=== PATIENT | male | born 1985 | race African-American/Black ===

== ENCOUNTER 2019-10-03 01:10 | Emergency (ER) | payer MEDICAID ==
[~2019-10-03] VITALS: Ht 182.9 cm; Wt 97.7 kg
[2019-10-03] MEDS ORDERED: morphine 4 MG/ML inj SYRINge IV ONE (01:30)
[2019-10-03] MEDS ORDERED: acetaminophen 325mg tablet PO ONE (01:30)
[2019-10-03] MEDS ORDERED: HYDROcodone/acetaminophen 5mg/325mg tablet PO ONE ×2 (01:30→02:30)
[2019-10-03] MEDS ORDERED: ondansetron/PF 4mg/2ml inj IV ONE (01:30)
[2019-10-03] MEDS ORDERED: normal saline 1000ml 1,000 ML IV ONE ×2 (01:35→02:25)
[2019-10-03 01:41] LABS: BASOPHILS % (AUTO) 0.5 % (0-1); EOSINOPHILS # (AUTO) 0.1 X10'3 (0-0.9); EOSINOPHILS % (AUTO) 0.7 % (0-6); HEMATOCRIT 40.4 % (42.0-52.0); HEMOGLOBIN 13.9 g/dl (14.0-17.9); LYMPHOCYTES # (AUTO) 1.6 X10'3 (1.1-4.8); LYMPHOCYTES % (AUTO) 15.9 % (21-51); MEAN CORPUSCULAR HEMOGLOBIN 31.7 PG (27.0-31.0); MEAN CORPUSCULAR HGB CONC 34.4 g/dL (33.0-36.5); MEAN CORPUSCULAR VOLUME 91.9 FL (78-98); MEAN PLATELET VOLUME 7.9 FL (7.4-10.4); MONOCYTES # (AUTO) 0.7 X10'3 (0-0.9); NEUTROPHILS # (AUTO) 7.7 X10'3 (1.8-7.7); NEUTROPHILS % (AUTO) 75.9 % (42-75); PLATELET COUNT 294 X10'3 (140-440); RED CELL DISTRIBUTION WIDTH 12.3 % (11.5-14.5); WHITE BLOOD COUNT 10.2 X10'3 (4.5-11.0)
[2019-10-03 02:08] LABS: CLARITY,URINE SLIGHTLY CLOUDY (Clear); COLOR,URINE YELLOW (Yellow); GLUCOSE, URINE 500 mg/dl (Neg); KETONES,URINE >=80 mg/dl (Neg); LEUKOCYTE ESTERASE ,URINE NEGATIVE (Neg); NITRITES, URINE NEGATIVE (Neg); OCCULT BLOOD,URINE TRACE-INTACT (Neg); PROTEIN,URINE 100 mg/dl (Neg); UROBILINOGEN,URINE 0.2 E.U/dL (0.2-1.0)
[2019-10-03 02:12] LABS: UA COLLECTION TYPE URINAL
[2019-10-03 02:13] LABS: BACTERIA,URINE NONE SEEN /HPF (Neg); RBC,URINE 0-2 /HPF (0-2); SQUAMOUS EPITHELIAL CELL,UR FEW /LPF (FEW); WBC,URINE NONE SEEN /HPF (0-4)
[2019-10-03 02:21] LABS: ALANINE AMINOTRANSFERASE 58 U/L (12-78); ALBUMIN/GLOBULIN RATIO 0.8 (1.1-1.5); ALKALINE PHOSPHATASE 117 IU/L (46-116); ANION GAP 13 (8-16); ASPARTATE AMINO TRANSFERASE 52 U/L (10-37); BILIRUBIN,TOTAL 1.2 MG/DL (0.1-1.0); BLOOD UREA NITROGEN 9 MG/DL (7-18); BUN/CREATININE RATIO 7.4 (5.4-32.0); CALCIUM 9.8 MG/DL (8.5-10.1); CHLORIDE 103 MMOL/L (99-107); CREATININE 1.21 MG/DL (0.60-1.10); GLUCOSE 294 MG/DL (70-104); LIPASE 476 U/L (73-393); POTASSIUM 3.4 MMOL/L (3.5-5.1); SODIUM 140 MMOL/L (135-145); TOTAL CARBON DIOXIDE 24.5 MMOL/L (24-32); TOTAL PROTEIN 8.8 G/DL (6.4-8.2); eGFR 69 ML/MIN
[2019-10-03] MEDS ORDERED: ONDA8TAB6 PO (02:28)
[2019-10-03] MEDS ORDERED: HYDR-3965 PO (02:28)
[2019-10-03] MEDS ORDERED: pantoprazole 40 MG vial IV ONE (02:30)
[2019-10-03] MEDS ORDERED: PANT-47 PO (02:30)
[2019-10-03 02:38] VITALS: BP 146/107
== END 2019-10-03 02:50 | disposition home or self-care (01) ==
LOC: ER 01:11
DX: K85.20 Alcohol induced acute pancreatitis without necrosis or infection (principal); R10.10 Upper abdominal pain, unspecified; R11.0 Nausea; Z72.89 Other problems related to lifestyle; Z88.0 Allergy status to penicillin; Z79.899 Other long term (current) drug therapy
CPT/HCPCS: 36415; 80053; 81001; 82948; 83690; 85025; 96374; 96375; 99284; C9113; J2270; J2405; J7030

== ENCOUNTER 2019-11-04 21:45 | Inpatient (IN) | payer MEDICAID, OTHER ==
[~2019-11-04] VITALS: Ht 182.9 cm; Wt 95.5 kg
[~2019-11-04 21:45] MED LIST: HYDR-3965 PO; ONDA8TAB6 PO; PANT-47 PO
[2019-11-04] MEDS ORDERED: normal saline 1000ML IV soln IVB ONE ×2 (22:20→22:40)
[2019-11-04] MEDS ORDERED: ondansetron/PF 4mg/2ml inj IV ONE (22:20)
[2019-11-04 22:30] LABS: ALANINE AMINOTRANSFERASE 76 U/L (12-78); ALBUMIN 4.5 G/DL (3.4-5.0); ALBUMIN/GLOBULIN RATIO 0.8 (1.1-1.5); ALKALINE PHOSPHATASE 149 IU/L (46-116); ANION GAP 28 (8-16); ASPARTATE AMINO TRANSFERASE 46 U/L (10-37); BILIRUBIN,TOTAL 1.3 MG/DL (0.1-1.0); BLOOD UREA NITROGEN 8 MG/DL (7-18); BUN/CREATININE RATIO 5.7 (5.4-32.0); CALCIUM 9.9 MG/DL (8.5-10.1); CHLORIDE 96 MMOL/L (99-107); CREATININE 1.41 MG/DL (0.60-1.10); GLUCOSE 420 MG/DL (70-104); POTASSIUM 4.3 MMOL/L (3.5-5.1); SODIUM 133 MMOL/L (135-145); TOTAL PROTEIN 9.8 G/DL (6.4-8.2); eGFR 70 ML/MIN
[2019-11-04 22:33] LABS: BASOPHILS % (AUTO) 0.4 % (0-1); EOSINOPHILS % (AUTO) 0.3 % (0-6); HEMATOCRIT 48.6 % (42.0-52.0); LYMPHOCYTES # (AUTO) 2.4 X10'3 (1.1-4.8); LYMPHOCYTES % (AUTO) 18.2 % (21-51); MEAN CORPUSCULAR HEMOGLOBIN 30.7 PG (27.0-31.0); MEAN CORPUSCULAR HGB CONC 32.9 g/dL (33.0-36.5); MEAN CORPUSCULAR VOLUME 93.4 FL (78-98); MEAN PLATELET VOLUME 9.2 FL (7.4-10.4); MONOCYTES % (AUTO) 7.9 % (2-12); NEUTROPHILS # (AUTO) 9.7 X10'3 (1.8-7.7); NEUTROPHILS % (AUTO) 73.2 % (42-75); PLATELET COUNT 285 X10'3 (140-440); RED CELL DISTRIBUTION WIDTH 12.1 % (11.5-14.5); WHITE BLOOD COUNT 13.2 X10'3 (4.5-11.0)
[2019-11-04 22:35] LABS: CLARITY,URINE CLEAR (Clear); COLOR,URINE YELLOW (Yellow); GLUCOSE, URINE >=1000 mg/dl (Neg); KETONES,URINE >=80 mg/dl (Neg); LEUKOCYTE ESTERASE ,URINE NEGATIVE (Neg); NITRITES, URINE NEGATIVE (Neg); OCCULT BLOOD,URINE MODERATE (Neg); PH,URINE 5.5 (4.8-8.0); PROTEIN,URINE 30 mg/dl (Neg); UROBILINOGEN,URINE 0.2 E.U/dL (0.2-1.0)
[2019-11-04 22:35] LABS: LIPASE 1984 U/L (73-393); TOTAL CARBON DIOXIDE 9.3 MMOL/L (24-32)
[2019-11-04 22:40] LABS: UA COLLECTION TYPE CLN CATCH MIDSTREAM
[2019-11-04] MEDS ORDERED: insulin regular, human U-100 3ml vial - multi-dose IV PRN ×2 (22:40→23:20)
[2019-11-04 22:43] LABS: BACTERIA,URINE NONE SEEN /HPF (Neg); RBC,URINE 0-2 /HPF (0-2); SQUAMOUS EPITHELIAL CELL,UR FEW /LPF (FEW); WBC,URINE NONE SEEN /HPF (0-4)
[2019-11-04 23:06] LABS: ABG BASE EXCESS -17.4 mmol/L (-2.0-2.0); ABG HCO3 7.3 mmol/L (22.0-26.0); ABG OXYGEN SATURATION 97.5 % (94-97); ABG PCO2 (T) 17.5 mmHg (35.0-48.0); ABG PO2 (T) 106.5 mmHg (75.0-100.0); ALLEN'S TEST POSITIVE; FCOHb 0.3 % (0.0-3.9); FMetHb 0.5 % (0.0-1.5); FO2Hb 96.7 % (94-97); PATIENT TEMPERATURE 36.8; TOTAL HEMOGLOBIN 16.9 G/dl (14.0-18.0)
[2019-11-04] MEDS ORDERED: sodium phosphate inj. 30 MMOL in dextrose 5%-water 250 ML IV PRN (23:20)
[2019-11-04] MEDS ORDERED: thiamine inj. 100 MG in normal saline 100ml IV soln 100 ML IV ONE (23:20)
[2019-11-04] MEDS ORDERED: potassium CL 10mEq/100ml bag 100 ML IV PRN ×2 (23:20)
[2019-11-04] MEDS ORDERED: sodium bicarbonate (8.4%) inj. 50 MEQ in dextrose 5% water 500ml 250 ML IV PRN (23:20)
[2019-11-04] MEDS ORDERED: haloperidol lactate 5mg/ml inj IM PRN (23:20)
[2019-11-04] MEDS ORDERED: magnesium 2GM in 50ml NS 50 ML IV PRN (23:20)
[2019-11-04] MEDS ORDERED: haloperidol 5mg tablet PO PRN (23:20)
[2019-11-04] MEDS ORDERED: magnesium Cl slow-release 64mg tablet PO PRN (23:20)
[2019-11-04] MEDS ORDERED: acetaminophen 325mg tablet PO PRN (23:20)
[2019-11-04] MEDS ORDERED: LORazepam 2 mg/ml vial IV PRN (23:20)
[2019-11-04] MEDS ORDERED: sodium phosphate inj. 15 MMOL in dextrose 5%-water 250 ML IV PRN (23:20)
[2019-11-04] MEDS ORDERED: morphine 2 MG/ML inj. syringe IV PRN (23:20)
[2019-11-04] MEDS ORDERED: Neutra Phos packet PO PRN (23:20)
[2019-11-04] MEDS ORDERED: potassium Cl 20 mEq SR tablet PO PRN (23:20)
[2019-11-04] MEDS: normal saline 1000ml 1,000 ML IV SCH ×2 (23:20→23:50)
[2019-11-04] MEDS ORDERED: Insulin Reg/NS 100units/100mL 100 ML IV SCH (23:20)
[2019-11-04] MEDS ORDERED: magnesium 4gm in 100ml NS 100 ML IV PRN (23:20)
[2019-11-04] MEDS ORDERED: sodium bicarbonate (8.4%) inj. 100 MEQ in dextrose 5% water 500ml 500 ML IV PRN (23:20)
[2019-11-04] MEDS: morphine 4 MG/ML inj SYRINge IV PRN (23:24)
[2019-11-04] MEDS: Insulin Reg/NS 100units/100mL 100 ML IV SCH (23:34)
--- NOTE | 2019-11-04 23:40 | NUR ---
bs 340 before insulin drip started
[2019-11-04] MEDS ORDERED: METF500T PO (23:46)
[2019-11-04] MEDS ORDERED: MULT-1085 PO (23:46)
[2019-11-04] MEDS ORDERED: LOSA25TA96 PO (23:46)
[2019-11-05] MEDS ORDERED: proCHLORperazine 10 MG/2 ml inj IV ONE (00:25)
[2019-11-05] MEDS: morphine 4 MG/ML inj SYRINge IV PRN ×6 (00:26→21:08)
[2019-11-05] MEDS: normal saline 1000ml 1,000 ML IV SCH ×3 (01:04→07:20)
[2019-11-05 01:24] LABS: BASOPHILS % (AUTO) 0.4 % (0-1); EOSINOPHILS % (AUTO) 0.2 % (0-6); HEMATOCRIT 42.7 % (42.0-52.0); HEMOGLOBIN 14.1 g/dl (14.0-17.9); LYMPHOCYTES # (AUTO) 1.6 X10'3 (1.1-4.8); LYMPHOCYTES % (AUTO) 17.2 % (21-51); MEAN CORPUSCULAR VOLUME 93.7 FL (78-98); MONOCYTES # (AUTO) 0.8 X10'3 (0-0.9); MONOCYTES % (AUTO) 8.8 % (2-12); NEUTROPHILS # (AUTO) 6.8 X10'3 (1.8-7.7); NEUTROPHILS % (AUTO) 73.4 % (42-75); PLATELET COUNT 225 X10'3 (140-440); RED BLOOD COUNT 4.56 X10'6 (4.70-6.10); RED CELL DISTRIBUTION WIDTH 11.9 % (11.5-14.5); WHITE BLOOD COUNT 9.3 X10'3 (4.5-11.0)
[2019-11-05 01:32] LABS: ALBUMIN 3.6 G/DL (3.4-5.0); ANION GAP 24 (8-16); BLOOD UREA NITROGEN 7 MG/DL (7-18); BUN/CREATININE RATIO 5.4 (5.4-32.0); CALCIUM 8.3 MG/DL (8.5-10.1); CHLORIDE 106 MMOL/L (99-107); CREATININE 1.29 MG/DL (0.60-1.10); GLUCOSE 290 MG/DL (70-104); PHOSPHORUS 3.2 MG/DL (2.3-4.5); POTASSIUM 3.9 MMOL/L (3.5-5.1); SODIUM 140 MMOL/L (135-145); eGFR 77 ML/MIN
[2019-11-05 01:33] LABS: TOTAL CARBON DIOXIDE 9.6 MMOL/L (24-32)
[2019-11-05] MEDS: potassium CL 20mEq in D5-1/2NS 1,000 ML IV PRN ×3 (02:33→21:12)
[2019-11-05] MEDS: ondansetron/PF 4mg/2ml inj IV PRN (02:50)
[2019-11-05 03:00] VITALS: BP 142/92
[2019-11-05 04:17] LABS: HEMOGLOBIN A1C 11.7 % (4.5-6.2)
--- NOTE | 2019-11-05 06:15 | NUR ---
Patient in room U 3023. I have received report from Sanjeev NASH and had the opportunity to ask questions and assume patient care. Patient awake and in bed, appears to be in mild discomfort.
--- NOTE | 2019-11-05 06:20 | NUR ---
Patient in room PCU 3023. I have received report from CHARITY Pace and had the opportunity to ask questions and assume patient care.
[2019-11-05 06:28] LABS: ALANINE AMINOTRANSFERASE 53 U/L (12-78); ALBUMIN 3.6 G/DL (3.4-5.0); ALBUMIN/GLOBULIN RATIO 0.9 (1.1-1.5); ALKALINE PHOSPHATASE 117 IU/L (46-116); ANION GAP 19 (8-16); ASPARTATE AMINO TRANSFERASE 28 U/L (10-37); BILIRUBIN,TOTAL 0.9 MG/DL (0.1-1.0); BLOOD UREA NITROGEN 5 MG/DL (7-18); BUN/CREATININE RATIO 4.4 (5.4-32.0); CALCIUM 8.2 MG/DL (8.5-10.1); CHLORIDE 108 MMOL/L (99-107); CREATININE 1.14 MG/DL (0.60-1.10); GLUCOSE 230 MG/DL (70-104); PHOSPHORUS 2.3 MG/DL (2.3-4.5); POTASSIUM 3.6 MMOL/L (3.5-5.1); SODIUM 139 MMOL/L (135-145); TOTAL PROTEIN 7.7 G/DL (6.4-8.2); eGFR 89 ML/MIN
[2019-11-05 06:34] LABS: TOTAL CARBON DIOXIDE 11.9 MMOL/L (24-32)
--- NOTE | 2019-11-05 06:54 | NUR ---
Paged Dr Liao PAGER ID: [phone] MESSAGE: Graham Caro Rm 3023B Pt DKA CO2 is 11.9, up from 9.6. Thanks Lea Macias [phone]
[2019-11-05 07:00] VITALS: BP 117/84
[2019-11-05] MEDS: K and/or MAG REPLACEMENT MC SCH ×2 (08:00→19:26)
[2019-11-05] MEDS ORDERED: folic acid inj. 2 MG, thiamine inj. 100 MG, MVI, adult No.4 with vit. K 10 ML in dextro... IV SCH ×4 (08:00)
[2019-11-05] MEDS: losartan 25mg tablet PO SCH (08:13)
[2019-11-05] MEDS: folic acid 1mg tablet PO SCH (08:13)
[2019-11-05] MEDS: thiamine 100mg tablet PO SCH (08:13)
[2019-11-05] MEDS: multivitamins, therapeutics tablet PO SCH (08:13)
[2019-11-05] MEDS: enoxaparin 40mg/0.4ml syringe SQ SCH (08:15)
[2019-11-05] MEDS ORDERED: pneumococcal 23-VAL P-sac vacc 25 mcg/0.5ml vial IMVAC ONE (10:00)
[2019-11-05 11:00] VITALS: BP 126/69
[2019-11-05 11:39] LABS: ALANINE AMINOTRANSFERASE 49 U/L (12-78); ALBUMIN 3.6 G/DL (3.4-5.0); ALBUMIN/GLOBULIN RATIO 0.9 (1.1-1.5); ALKALINE PHOSPHATASE 114 IU/L (46-116); ANION GAP 17 (8-16); ASPARTATE AMINO TRANSFERASE 27 U/L (10-37); BILIRUBIN,TOTAL 1.1 MG/DL (0.1-1.0); BLOOD UREA NITROGEN 4 MG/DL (7-18); BUN/CREATININE RATIO 3.7 (5.4-32.0); CHLORIDE 109 MMOL/L (99-107); CREATININE 1.08 MG/DL (0.60-1.10); GLUCOSE 146 MG/DL (70-104); POTASSIUM 3.7 MMOL/L (3.5-5.1); SODIUM 141 MMOL/L (135-145); TOTAL PROTEIN 7.8 G/DL (6.4-8.2); eGFR > 90 ML/MIN
[2019-11-05 11:40] LABS: TOTAL CARBON DIOXIDE 14.8 MMOL/L (24-32)
--- NOTE | 2019-11-05 11:54 | NUR ---
Paged Dr Hernandez regarding critical CO2 PAGER ID: [phone] MESSAGE: Re: Graham Deal Rm 3023B CO2 14.8, up from 11.9. Thank you Lea Macias [phone]
[2019-11-05] MEDS: Insulin Reg/NS 100units/100mL 100 ML IV SCH (13:21)
--- NOTE | 2019-11-05 14:41 | NUR ---
DM consult, patient's A1c is 11.7; presented to ED with BG 490 mg/dl and accuchecks 154-346 mg/dl, abdominal pain, n/v; admitted with DKA, acute pancreatitis, NIKKIE. History pancreatitis, EtOH, DM (diagnosed 6 months ago). Per H&P recent admission to [facility] with EtOH induced pancreatitis, takes metformin with recent increase in dose,last drink two days PHYSICIAN NEONATOLOGY, and pt reporting no change in appetite. Receiving thiamine, folic acid, banana bag, MVI. Will need written DM education handout and written pancreatitis education handout with verbal review prior to discharge. Recommend: 1. Diet advancement as medically indicated to low fat 2. Continue banana bag, thiamine, folic acid, MVI 3. weight per rx Addendum: 11/05/19 at [address] Amended: Links added.
[2019-11-05 15:00] VITALS: BP 116/75
[2019-11-05 15:31] LABS: ALANINE AMINOTRANSFERASE 49 U/L (12-78); ALBUMIN 3.4 G/DL (3.4-5.0); ALBUMIN/GLOBULIN RATIO 0.8 (1.1-1.5); ALKALINE PHOSPHATASE 107 IU/L (46-116); ANION GAP 13 (8-16); ASPARTATE AMINO TRANSFERASE 27 U/L (10-37); BILIRUBIN,TOTAL 1.2 MG/DL (0.1-1.0); BLOOD UREA NITROGEN 4 MG/DL (7-18); BUN/CREATININE RATIO 3.9 (5.4-32.0); CALCIUM 8.9 MG/DL (8.5-10.1); CHLORIDE 109 MMOL/L (99-107); CREATININE 1.02 MG/DL (0.60-1.10); GLUCOSE 165 MG/DL (70-104); POTASSIUM 3.6 MMOL/L (3.5-5.1); SODIUM 140 MMOL/L (135-145); TOTAL CARBON DIOXIDE 17.8 MMOL/L (24-32); TOTAL PROTEIN 7.8 G/DL (6.4-8.2); eGFR > 90 ML/MIN
--- NOTE | 2019-11-05 16:17 | NUR ---
Paged Dr Hernandez regarding patient's blood sugar being 146. MESSAGE: Re Graham Deal [id number] Pt's blood sugar is 146, maxed out on fluids at 250ml/hr, Insulin is running at 5ml/hr, can I lower the inslulin rate? Thank you Lea Macias [phone]
--- NOTE | 2019-11-05 16:24 | NUR ---
Per Dr Hernandez's order, because pt's blood sugar was 146, I was advised to lower Insulin to 3ml/hr from 5ml/hr.
--- NOTE | 2019-11-05 17:35 | NUR ---
Patient's KCL 20meq D5 1/2 NS went to KVO mode for 20 mins while I was waiting for pharmacy to make a new bag. Pt's blood sugar dropped to 129, I waited 15 minutes with the KCL 20meq D5 1/2 NS to run and rechecked the blood sugar, it came up to 155. I kept all orders the same as of now and will page the doctor if new changes are noted.
--- NOTE | 2019-11-05 18:12 | NUR ---
Orientee documentation: I have reviewed and agree with all interventions, assessments performed and documented by CHARITY Phan.
--- NOTE | 2019-11-05 18:12 | NUR ---
Problems reprioritized. Patient report given, questions answered & plan of care reviewed with Sanjeev NASH. Patient awake and watching televison comftorably in bed.
--- NOTE | 2019-11-05 18:13 | NUR ---
Orientee Medication Administration: For this medication-pass time frame, all medication were reviewed, dispensed, administered and documented per hospital policy by CHARITY Phan.
--- NOTE | 2019-11-05 18:13 | NUR ---
Problems reprioritized. Patient report given, questions answered & plan of care reviewed with CHARITY Pace. All patient needs met at this time.
[2019-11-05 18:58] VITALS: BP 118/73
[2019-11-05 19:55] LABS: ALANINE AMINOTRANSFERASE 49 U/L (12-78); ALBUMIN 3.4 G/DL (3.4-5.0); ALBUMIN/GLOBULIN RATIO 0.8 (1.1-1.5); ALKALINE PHOSPHATASE 106 IU/L (46-116); ANION GAP 13 (8-16); ASPARTATE AMINO TRANSFERASE 28 U/L (10-37); BILIRUBIN,TOTAL 1.3 MG/DL (0.1-1.0); BLOOD UREA NITROGEN 3 MG/DL (7-18); BUN/CREATININE RATIO 2.9 (5.4-32.0); CALCIUM 8.7 MG/DL (8.5-10.1); CHLORIDE 107 MMOL/L (99-107); CREATININE 1.04 MG/DL (0.60-1.10); GLUCOSE 207 MG/DL (70-104); POTASSIUM 3.6 MMOL/L (3.5-5.1); SODIUM 138 MMOL/L (135-145); TOTAL CARBON DIOXIDE 17.6 MMOL/L (24-32); TOTAL PROTEIN 7.5 G/DL (6.4-8.2); eGFR > 90 ML/MIN
[2019-11-05 22:55] LABS: ALANINE AMINOTRANSFERASE 44 U/L (12-78); ALBUMIN 3.3 G/DL (3.4-5.0); ALBUMIN/GLOBULIN RATIO 0.8 (1.1-1.5); ALKALINE PHOSPHATASE 106 IU/L (46-116); ANION GAP 12 (8-16); ASPARTATE AMINO TRANSFERASE 25 U/L (10-37); BILIRUBIN,TOTAL 1.4 MG/DL (0.1-1.0); BLOOD UREA NITROGEN 3 MG/DL (7-18); BUN/CREATININE RATIO 3.1 (5.4-32.0); CALCIUM 8.5 MG/DL (8.5-10.1); CHLORIDE 108 MMOL/L (99-107); CREATININE 0.97 MG/DL (0.60-1.10); GLUCOSE 221 MG/DL (70-104); POTASSIUM 3.4 MMOL/L (3.5-5.1); SODIUM 138 MMOL/L (135-145); TOTAL CARBON DIOXIDE 18.4 MMOL/L (24-32); TOTAL PROTEIN 7.2 G/DL (6.4-8.2); eGFR > 90 ML/MIN
[2019-11-05 23:00] VITALS: BP 107/71
[2019-11-05] MEDS: potassium Cl 20 mEq SR tablet PO PRN (23:26)
[2019-11-06] MEDS: morphine 4 MG/ML inj SYRINge IV PRN ×6 (01:24→23:09)
[2019-11-06 02:40] LABS: BASOPHILS % (AUTO) 0.6 % (0-1); EOSINOPHILS # (AUTO) 0.2 X10'3 (0-0.9); EOSINOPHILS % (AUTO) 2.7 % (0-6); HEMATOCRIT 38.7 % (42.0-52.0); HEMOGLOBIN 12.9 g/dl (14.0-17.9); LYMPHOCYTES # (AUTO) 1.6 X10'3 (1.1-4.8); LYMPHOCYTES % (AUTO) 24.6 % (21-51); MEAN CORPUSCULAR HEMOGLOBIN 30.1 PG (27.0-31.0); MEAN CORPUSCULAR HGB CONC 33.3 g/dL (33.0-36.5); MEAN CORPUSCULAR VOLUME 90.2 FL (78-98); MEAN PLATELET VOLUME 8.5 FL (7.4-10.4); MONOCYTES # (AUTO) 0.7 X10'3 (0-0.9); MONOCYTES % (AUTO) 11.3 % (2-12); NEUTROPHILS # (AUTO) 3.9 X10'3 (1.8-7.7); NEUTROPHILS % (AUTO) 60.8 % (42-75); PLATELET COUNT 209 X10'3 (140-440); RED BLOOD COUNT 4.29 X10'6 (4.70-6.10); RED CELL DISTRIBUTION WIDTH 12.1 % (11.5-14.5); WHITE BLOOD COUNT 6.5 X10'3 (4.5-11.0)
[2019-11-06 02:55] LABS: ALANINE AMINOTRANSFERASE 46 U/L (12-78); ALBUMIN 3.2 G/DL (3.4-5.0); ALBUMIN/GLOBULIN RATIO 0.8 (1.1-1.5); ALKALINE PHOSPHATASE 103 IU/L (46-116); ANION GAP 12 (8-16); ASPARTATE AMINO TRANSFERASE 35 U/L (10-37); BILIRUBIN,TOTAL 1.5 MG/DL (0.1-1.0); BLOOD UREA NITROGEN 2 MG/DL (7-18); BUN/CREATININE RATIO 2.2 (5.4-32.0); CALCIUM 8.7 MG/DL (8.5-10.1); CHLORIDE 107 MMOL/L (99-107); CREATININE 0.89 MG/DL (0.60-1.10); GLUCOSE 197 MG/DL (70-104); MAGNESIUM 1.8 MG/DL (1.5-2.4); PHOSPHORUS 1.9 MG/DL (2.3-4.5); POTASSIUM 3.3 MMOL/L (3.5-5.1); SODIUM 138 MMOL/L (135-145); TOTAL CARBON DIOXIDE 18.7 MMOL/L (24-32); TOTAL PROTEIN 7.1 G/DL (6.4-8.2); eGFR > 90 ML/MIN
[2019-11-06 03:00] VITALS: BP 115/69
[2019-11-06] MEDS: potassium Cl 20 mEq SR tablet PO PRN ×4 (03:33→23:18)
--- NOTE | 2019-11-06 06:11 | NUR ---
Patient in room PCU 3023. I have received report from Sanjeev NASH and had the opportunity to ask questions and assume patient care. Pt. awake and watching television in bed comfortably.
--- NOTE | 2019-11-06 06:13 | NUR ---
Patient in room PCU 3023. I have received report from CHARITY Pace and had the opportunity to ask questions and assume patient care. Pt resting comfortably, no needs at this time
[2019-11-06 07:00] VITALS: BP 121/83
[2019-11-06] MEDS: enoxaparin 40mg/0.4ml syringe SQ SCH (07:19)
[2019-11-06] MEDS: thiamine 100mg tablet PO SCH (07:19)
[2019-11-06] MEDS: multivitamins, therapeutics tablet PO SCH (07:20)
[2019-11-06] MEDS: losartan 25mg tablet PO SCH (07:20)
[2019-11-06] MEDS: folic acid 1mg tablet PO SCH (07:20)
[2019-11-06] MEDS: potassium CL 20mEq in D5-1/2NS 1,000 ML IV PRN (07:26)
[2019-11-06 07:52] LABS: ALANINE AMINOTRANSFERASE 50 U/L (12-78); ALBUMIN 3.3 G/DL (3.4-5.0); ALBUMIN/GLOBULIN RATIO 0.8 (1.1-1.5); ALKALINE PHOSPHATASE 105 IU/L (46-116); ANION GAP 11 (8-16); ASPARTATE AMINO TRANSFERASE 38 U/L (10-37); BILIRUBIN,TOTAL 1.6 MG/DL (0.1-1.0); BLOOD UREA NITROGEN 2 MG/DL (7-18); BUN/CREATININE RATIO 2.4 (5.4-32.0); CALCIUM 8.6 MG/DL (8.5-10.1); CHLORIDE 106 MMOL/L (99-107); CREATININE 0.85 MG/DL (0.60-1.10); GLUCOSE 169 MG/DL (70-104); POTASSIUM 3.6 MMOL/L (3.5-5.1); SODIUM 137 MMOL/L (135-145); TOTAL CARBON DIOXIDE 20.4 MMOL/L (24-32); TOTAL PROTEIN 7.3 G/DL (6.4-8.2); eGFR > 90 ML/MIN
[2019-11-06] MEDS: K and/or MAG REPLACEMENT MC SCH ×2 (08:00→19:23)
[2019-11-06] MEDS ORDERED: dextrose 50%-water 50ml dispensing syringe IV PRN ×2 (09:10)
[2019-11-06] MEDS ORDERED: glucagon, human recombinant 1mg kit SUBCUT PRN (09:10)
[2019-11-06] MEDS ORDERED: dextrose ORAL solution 15 GM/59 ML bottle PO PRN ×2 (09:10)
[2019-11-06] MEDS ORDERED: MESSAGE TO PHARMACY PO ONE (09:10)
--- NOTE | 2019-11-06 09:27 | NUR ---
Per Dr Hernandez's orders, give patient 15 units of Lantus, wait one hour then shut the insulin gtt and 20meq D5 1/2 NS off. Start pt on the hyperglycemia/hypoglycemia protocol, order a carb control diet, start giving NS @100ml/hr, and do Q2H accuchecks. Get orthostatic vitals Q12H, and order physical therapy.
[2019-11-06 11:00] VITALS: BP 121/85
[2019-11-06 11:13] LABS: ALANINE AMINOTRANSFERASE 57 U/L (12-78); ALBUMIN 3.4 G/DL (3.4-5.0); ALBUMIN/GLOBULIN RATIO 0.8 (1.1-1.5); ALKALINE PHOSPHATASE 108 IU/L (46-116); ANION GAP 9 (8-16); ASPARTATE AMINO TRANSFERASE 55 U/L (10-37); BILIRUBIN,TOTAL 1.7 MG/DL (0.1-1.0); BLOOD UREA NITROGEN 2 MG/DL (7-18); BUN/CREATININE RATIO 2.3 (5.4-32.0); CALCIUM 8.9 MG/DL (8.5-10.1); CHLORIDE 104 MMOL/L (99-107); CREATININE 0.88 MG/DL (0.60-1.10); GLUCOSE 169 MG/DL (70-104); POTASSIUM 3.6 MMOL/L (3.5-5.1); SODIUM 136 MMOL/L (135-145); TOTAL CARBON DIOXIDE 22.7 MMOL/L (24-32); TOTAL PROTEIN 7.6 G/DL (6.4-8.2); eGFR > 90 ML/MIN
[2019-11-06] MEDS: normal saline 1000ml 1,000 ML IV SCH ×2 (11:35→20:17)
[2019-11-06] MEDS: insulin Lispro (HumaLOG) vial - multi-dose SQ SCH ×2 (13:43→21:37)
[2019-11-06] MEDS: ondansetron/PF 4mg/2ml inj IV PRN (13:57)
[2019-11-06 15:00] VITALS: BP 117/83
[2019-11-06 15:45] LABS: ALANINE AMINOTRANSFERASE 61 U/L (12-78); ALBUMIN 3.3 G/DL (3.4-5.0); ALBUMIN/GLOBULIN RATIO 0.9 (1.1-1.5); ALKALINE PHOSPHATASE 105 IU/L (46-116); ANION GAP 14 (8-16); ASPARTATE AMINO TRANSFERASE 63 U/L (10-37); BILIRUBIN,TOTAL 1.8 MG/DL (0.1-1.0); BLOOD UREA NITROGEN 3 MG/DL (7-18); BUN/CREATININE RATIO 3.9 (5.4-32.0); CALCIUM 8.8 MG/DL (8.5-10.1); CHLORIDE 105 MMOL/L (99-107); CREATININE 0.77 MG/DL (0.60-1.10); GLUCOSE 210 MG/DL (70-104); POTASSIUM 3.4 MMOL/L (3.5-5.1); SODIUM 137 MMOL/L (135-145); TOTAL CARBON DIOXIDE 18.4 MMOL/L (24-32); TOTAL PROTEIN 7.1 G/DL (6.4-8.2); eGFR > 90 ML/MIN
--- NOTE | 2019-11-06 16:56 | NUR ---
F/u for DM consult: Per MD note pt likely with T1DM and to be started on insulin. Pt seen at bedside for written and verbal pancreatitis and DM educations. Discussed CHO counting, low fat diet, and recommendation to discontinue alcohol intake d/t pancreatitis. Pt provided with insulin resources and informed about possible outpatient diabetes class through [facility] in [place]. Pt states he was previously taking his Metformin per rx however he was not following a CHO controlled diet although states he is familiar with diabetes management because his mom has diabetes. Pt passive during education. RD contact information provided. Patient's diet has been advanced to CHO controlled and pt documented to only have consumed 25% of starch on first meal. Pt denies food preferences, food allergies, or difficulty chewing/swallowing. Will continue to follow closely. Addendum: 11/06/19 at [address] Amended: Links added.
[2019-11-06 18:00] VITALS: BP 141/97
--- NOTE | 2019-11-06 18:14 | NUR ---
Per Dr Hernandez's orders, cancel Q4H CMP, continue with am labs. Start accuchecks Q4H, and cover pt with insulin per accucheck results and protocol, if pt has 2 consecutive blood sugars >200, contact provider for further instruction.
--- NOTE | 2019-11-06 18:16 | NUR ---
Orientee documentation: I have reviewed and agree with all interventions, assessments performed and documented by CHARITY Phan.
--- NOTE | 2019-11-06 18:16 | NUR ---
Orientee Medication Administration: For this medication-pass time frame, all medication were reviewed, dispensed, administered and documented per hospital policy by CHARITY Phan.
--- NOTE | 2019-11-06 18:17 | NUR ---
Problems reprioritized. Patient report given, questions answered & plan of care reviewed with Gonzalo RN. Patient eating dinner comftorably in bed, with no signs of distress.
--- NOTE | 2019-11-06 18:17 | NUR ---
Problems reprioritized. Patient report given, questions answered & plan of care reviewed with Gonzalo RN. All patient needs met at this time.
--- NOTE | 2019-11-06 18:30 | NUR ---
Patient in room PCU 3023. I have received report from Lea NASH and had the opportunity to ask questions and assume patient care. Per Lea NASH, MD QUICK wants BS taken Q4 and corrected per protocol sliding scale on Q4 basis.
[2019-11-06] MEDS ORDERED: famotidine 10mg tablet PO ONE (20:50)
[2019-11-06] MEDS ORDERED: insulin glargine (Lantus) pen - multi-dose SQ SCH (21:00)
[2019-11-06 22:00] VITALS: BP 146/102
[2019-11-06] MEDS ORDERED: LORazepam 1 MG tablet PO PRN (23:20)
[2019-11-06] MEDS ORDERED: LORazepam 2 mg/ml vial IV PRN (23:20)
[2019-11-07] MEDS: insulin Lispro (HumaLOG) vial - multi-dose SQ SCH ×4 (01:39→13:15)
[2019-11-07 02:00] VITALS: BP 146/100
[2019-11-07] MEDS: morphine 4 MG/ML inj SYRINge IV PRN ×3 (03:16→11:54)
[2019-11-07 05:22] LABS: BASOPHILS # (AUTO) 0.1 X10'3 (0-0.2); BASOPHILS % (AUTO) 0.9 % (0-1); EOSINOPHILS # (AUTO) 0.1 X10'3 (0-0.9); EOSINOPHILS % (AUTO) 2.2 % (0-6); HEMATOCRIT 38.7 % (42.0-52.0); HEMOGLOBIN 12.9 g/dl (14.0-17.9); LYMPHOCYTES # (AUTO) 1.5 X10'3 (1.1-4.8); LYMPHOCYTES % (AUTO) 27.5 % (21-51); MEAN CORPUSCULAR HEMOGLOBIN 30.3 PG (27.0-31.0); MEAN CORPUSCULAR HGB CONC 33.3 g/dL (33.0-36.5); MEAN CORPUSCULAR VOLUME 90.8 FL (78-98); MEAN PLATELET VOLUME 8.9 FL (7.4-10.4); MONOCYTES # (AUTO) 0.6 X10'3 (0-0.9); MONOCYTES % (AUTO) 10.5 % (2-12); NEUTROPHILS # (AUTO) 3.3 X10'3 (1.8-7.7); NEUTROPHILS % (AUTO) 58.9 % (42-75); PLATELET COUNT 220 X10'3 (140-440); RED BLOOD COUNT 4.26 X10'6 (4.70-6.10); RED CELL DISTRIBUTION WIDTH 11.9 % (11.5-14.5); WHITE BLOOD COUNT 5.6 X10'3 (4.5-11.0)
[2019-11-07] MEDS: normal saline 1000ml 1,000 ML IV SCH (05:31)
[2019-11-07 05:49] LABS: ALANINE AMINOTRANSFERASE 62 U/L (12-78); ALBUMIN 3.2 G/DL (3.4-5.0); ALBUMIN/GLOBULIN RATIO 0.8 (1.1-1.5); ALKALINE PHOSPHATASE 100 IU/L (46-116); ANION GAP 13 (8-16); ASPARTATE AMINO TRANSFERASE 54 U/L (10-37); BILIRUBIN,TOTAL 1.9 MG/DL (0.1-1.0); BLOOD UREA NITROGEN 3 MG/DL (7-18); BUN/CREATININE RATIO 3.8 (5.4-32.0); CALCIUM 8.5 MG/DL (8.5-10.1); CHLORIDE 107 MMOL/L (99-107); CREATININE 0.78 MG/DL (0.60-1.10); GLUCOSE 181 MG/DL (70-104); MAGNESIUM 1.7 MG/DL (1.5-2.4); PHOSPHORUS 2.6 MG/DL (2.3-4.5); POTASSIUM 3.4 MMOL/L (3.5-5.1); SODIUM 139 MMOL/L (135-145); TOTAL CARBON DIOXIDE 18.8 MMOL/L (24-32); eGFR > 90 ML/MIN
--- NOTE | 2019-11-07 06:04 | NUR ---
Problems reprioritized. Patient report given, questions answered & plan of care reviewed with Lea Diane RN.
--- NOTE | 2019-11-07 06:18 | NUR ---
Patient in room PCU 3023. I have received report from [facility] RN and had the opportunity to ask questions and assume patient care. Patient is awake watching television comfortably in bed.
--- NOTE | 2019-11-07 06:21 | NUR ---
Patient in room PCU 3023B. I have received report from Gonzalo RN and had the opportunity to ask questions and assume patient care.
[2019-11-07 07:00] VITALS: BP 109/73
[2019-11-07] MEDS: thiamine 100mg tablet PO SCH (07:51)
[2019-11-07] MEDS: losartan 25mg tablet PO SCH (07:51)
[2019-11-07] MEDS: multivitamins, therapeutics tablet PO SCH (07:51)
[2019-11-07] MEDS: folic acid 1mg tablet PO SCH (07:51)
[2019-11-07] MEDS: enoxaparin 40mg/0.4ml syringe SQ SCH (07:52)
[2019-11-07] MEDS: potassium Cl 20 mEq SR tablet PO PRN ×2 (07:52→11:54)
[2019-11-07 08:00] VITALS: BP_SYST 125; BP_SYST 134; BP_SYST 141; BP_DIAS 80; BP_DIAS 95; BP_DIAS 97
[2019-11-07] MEDS: K and/or MAG REPLACEMENT MC SCH (08:24)
[2019-11-07 11:00] VITALS: BP 125/80
[2019-11-07] MEDS ORDERED: [UNRECOGNIZED DRUG - CODE] METER (12:47)
[2019-11-07] MEDS ORDERED: [UNRECOGNIZED DRUG - CODE] (12:47)
[2019-11-07] MEDS ORDERED: INSU100V11 SQ (12:47)
[2019-11-07] MEDS ORDERED: LANTUS SQ (12:47)
[2019-11-07] MEDS ORDERED: POTA20TA19 PO (12:47)
[2019-11-07] MEDS ORDERED: [UNRECOGNIZED DRUG - CODE] TOP (12:47)
[2019-11-07] MEDS ORDERED: BLOO-1585 (12:47)
[2019-11-07 15:00] VITALS: BP 139/95
--- NOTE | 2019-11-07 15:07 | NUR ---
Per MD order by Dr. Jordan, patient is stable for discharge home. Discharge packet printed and reviewed with patient. Patient medications faxed to [facility] by inpatient pharmacy, paper copy also sent with patient. IV removed, tele removed. All discharge instructions, follow up, return precautions, and new diabetic teaching reviewed with patient. All questions answered. Patient sent with all belongings. Patient escorted to [facility] to go home via private vehicle.
--- NOTE | 2019-11-07 18:26 | NUR ---
Orientee documentation: I have reviewed and agree with all interventions, assessments performed and documented by CHARITY Phan
--- NOTE | 2019-11-07 18:26 | NUR ---
Orientee Medication Administration: For this medication-pass time frame, all medication were reviewed, dispensed, administered and documented per hospital policy by CHARITY Phan.
[2019-11-08] MEDS ORDERED: LORazepam 1 MG tablet PO PRN (23:20)
[2019-11-08] MEDS ORDERED: LORazepam 2 mg/ml vial IV PRN (23:20)
== END 2019-11-07 14:56 | disposition home or self-care (01) | DRG 637 ==
LOC: ER 21:46 → ED HOLD 23:20 → PCU 3S 11-05 02:43
PROVIDERS: ADMIT Family Medicine; ATTEND Internal Medicine
PROC: 3E0234Z Introduction of Serum, Toxoid and Vaccine into Muscle, Percutaneous Approach (ICD-10-PCS; principal; 2019-11-05)
DX: E13.10 Other specified diabetes mellitus with ketoacidosis without coma (principal); K85.90 Acute pancreatitis without necrosis or infection, unspecified; N17.9 Acute kidney failure, unspecified; N18.9 Chronic kidney disease, unspecified; Z23 Encounter for immunization
CPT/HCPCS: 36415; 36600; 80048; 80053; 81001; 82803; 82948; 83036; 83690; 83735; 84100; 85018; 85025; 87081; 90732; 99291; G0378; J0780; J1650; J1815; J2270; J2405; J3411; J3480; J7030

== ENCOUNTER 2020-04-10 18:00 | Emergency (ER) | payer SELFPAY ==
[~2020-04-10] VITALS: Ht 182.9 cm; Wt 95.0 kg
[~2020-04-10 18:00] MED LIST changes: +BLOO-1585; -HYDR-3965 PO; +INSU100V11 SQ; +LANTUS SQ; +LOSA25TA96 PO; +MULT-1085 PO; -ONDA8TAB6 PO; -PANT-47 PO; +POTA20TA19 PO; +[UNRECOGNIZED DRUG - CODE]; +[UNRECOGNIZED DRUG - CODE] METER; +[UNRECOGNIZED DRUG - CODE] TOP
[2020-04-10 18:40] LABS: MEAN CORPUSCULAR HEMOGLOBIN 31.5 PG (27.0-31.0); MEAN PLATELET VOLUME 7.1 FL (7.4-10.4)
[2020-04-10 18:43] LABS: BASOPHILS # (AUTO) 0.1 X10'3 (0-0.2); BASOPHILS % (AUTO) 0.6 % (0-1); EOSINOPHILS % (AUTO) 0.4 % (0-6); HEMATOCRIT 44.4 % (42.0-52.0); HEMOGLOBIN 15.1 g/dl (14.0-17.9); LYMPHOCYTES % (AUTO) 27.9 % (21-51); MEAN CORPUSCULAR VOLUME 92.6 FL (78-98); MONOCYTES # (AUTO) 0.9 X10'3 (0-0.9); MONOCYTES % (AUTO) 8.3 % (2-12); NEUTROPHILS # (AUTO) 6.7 X10'3 (1.8-7.7); NEUTROPHILS % (AUTO) 62.8 % (42-75); PLATELET COUNT 353 X10'3 (140-440); RED CELL DISTRIBUTION WIDTH 12.2 % (11.5-14.5); WHITE BLOOD COUNT 10.6 X10'3 (4.5-11.0)
[2020-04-10 19:04] LABS: ALANINE AMINOTRANSFERASE 60 U/L (12-78); ALBUMIN 4.1 G/DL (3.4-5.0); ALBUMIN/GLOBULIN RATIO 0.7 (1.1-1.5); ALKALINE PHOSPHATASE 145 IU/L (46-116); ANION GAP 9 (8-16); ASPARTATE AMINO TRANSFERASE 48 U/L (10-37); BILIRUBIN,TOTAL 1.2 MG/DL (0.1-1.0); BLOOD UREA NITROGEN 11 MG/DL (7-18); BUN/CREATININE RATIO 12.2 (5.4-32.0); CALCIUM 10.3 MG/DL (8.5-10.1); CHLORIDE 98 MMOL/L (99-107); GLUCOSE 188 MG/DL (70-104); LIPASE 1068 U/L (73-393); POTASSIUM 3.7 MMOL/L (3.5-5.1); SODIUM 137 MMOL/L (135-145); TOTAL CARBON DIOXIDE 29.7 MMOL/L (24-32); TOTAL PROTEIN 9.7 G/DL (6.4-8.2); eGFR > 90 ML/MIN
[2020-04-10 19:36] LABS: CLARITY,URINE CLEAR (Clear); COLOR,URINE YELLOW (Yellow); GLUCOSE, URINE NEGATIVE (Neg); KETONES,URINE 15 mg/dl (Neg); LEUKOCYTE ESTERASE ,URINE NEGATIVE (Neg); NITRITES, URINE NEGATIVE (Neg); OCCULT BLOOD,URINE TRACE-INTACT (Neg); PH,URINE 5.5 (4.8-8.0); PROTEIN,URINE 100 mg/dl (Neg)
[2020-04-10 19:37] LABS: UA COLLECTION TYPE CLN CATCH MIDSTREAM
[2020-04-10 19:40] VITALS: BP 140/105
[2020-04-10 19:45] LABS: BACTERIA,URINE NONE SEEN /HPF (Neg); MUCUS STRANDS MANY /LPF (Neg); RBC,URINE 0-2 /HPF (0-2); SQUAMOUS EPITHELIAL CELL,UR FEW /LPF (FEW); WBC,URINE 0-4 /HPF (0-4)
== END 2020-04-10 19:42 | disposition home or self-care (01) ==
LOC: ER 18:02
DX: B34.9 Viral infection, unspecified (principal); K85.90 Acute pancreatitis without necrosis or infection, unspecified; E11.9 Type 2 diabetes mellitus without complications; Z88.0 Allergy status to penicillin; Z79.899 Other long term (current) drug therapy; Z79.84 Long term (current) use of oral hypoglycemic drugs
CPT/HCPCS: 80053; 81001; 83690; 85025; 99283

== ENCOUNTER 2020-07-04 09:47 | Inpatient (IN) | payer BC ==
[~2020-07-04] VITALS: Ht 182.9 cm; Wt 92.1 kg
--- NOTE | 2020-07-04 06:15 | NUR ---
Problems reprioritized. Patient report given, questions answered & plan of care reviewed with CHARITY Smith.
[2020-07-04] MEDS ORDERED: LIDOcaine Viscous 15ml cup MM ONE (10:45)
[2020-07-04] MEDS ORDERED: mag hydrox/Alum hydrox/simeth 30ml oral suspension PO ONE (10:45)
[2020-07-04] MEDS ORDERED: ondansetron 4mg rapidly disintigrating tab PO ONE (10:45)
[2020-07-04 11:24] LABS: ALANINE AMINOTRANSFERASE 79 U/L (12-78); ALBUMIN 4.2 G/DL (3.4-5.0); ALBUMIN/GLOBULIN RATIO 0.9 (1.1-1.5); ALKALINE PHOSPHATASE 120 IU/L (46-116); ANION GAP 15 (8-16); ASPARTATE AMINO TRANSFERASE 45 U/L (10-37); BILIRUBIN,TOTAL 1.2 MG/DL (0.1-1.0); BLOOD UREA NITROGEN 9 MG/DL (7-18); BUN/CREATININE RATIO 10.7 (5.4-32.0); CALCIUM 9.8 MG/DL (8.5-10.1); CHLORIDE 96 MMOL/L (99-107); CREATININE 0.84 MG/DL (0.60-1.10); GLUCOSE 304 MG/DL (70-104); POTASSIUM 3.8 MMOL/L (3.5-5.1); SODIUM 133 MMOL/L (135-145); TOTAL CARBON DIOXIDE 22.4 MMOL/L (24-32); TOTAL PROTEIN 8.9 G/DL (6.4-8.2); eGFR > 90 ML/MIN
[2020-07-04 11:32] LABS: LIPASE 1586 U/L (73-393)
[2020-07-04] MEDS ORDERED: normal saline 1000ml 1,000 ML IV ONE ×2 (11:40→14:10)
[2020-07-04] MEDS ORDERED: morphine 10mg/ml inj. IV ONE ×2 (11:40→14:10)
[2020-07-04] MEDS ORDERED: ondansetron/PF 4mg/2ml inj IV ONE (11:40)
[2020-07-04] MEDS ORDERED: potassium Cl 40MEQ/1/2NS 520ml 520 ML IV PRN ×2 (14:30)
[2020-07-04] MEDS ORDERED: magnesium Cl slow-release 64mg tablet PO PRN (14:30)
[2020-07-04] MEDS ORDERED: LORazepam 2 mg/ml vial IV PRN (14:30)
[2020-07-04] MEDS ORDERED: HYDROcodone/acetaminophen 5mg/325mg tablet PO PRN (14:30)
[2020-07-04] MEDS ORDERED: bisacodyl 10mg suppository rectal RC PRN (14:30)
[2020-07-04] MEDS ORDERED: mag hydrox/Alum hydrox/simeth 30ml oral suspension PO PRN (14:30)
[2020-07-04] MEDS ORDERED: magnesium hydroxide 30ml (MOM) UD suspension PO PRN (14:30)
[2020-07-04] MEDS ORDERED: magnesium 2GM in 50ml NS 50 ML IV PRN (14:30)
[2020-07-04] MEDS ORDERED: potassium Cl 20 mEq SR tablet PO PRN (14:30)
[2020-07-04] MEDS ORDERED: haloperidol 5mg tablet PO PRN (14:30)
[2020-07-04] MEDS ORDERED: haloperidol lactate 5mg/ml inj IM PRN (14:30)
[2020-07-04] MEDS ORDERED: thiamine inj. 100 MG in normal saline 100ml IV soln 100 ML IV ONE (14:30)
[2020-07-04] MEDS ORDERED: acetaminophen 325mg tablet PO PRN ×2 (14:30)
[2020-07-04] MEDS ORDERED: magnesium 4gm in 100ml NS 100 ML IV PRN (14:30)
[2020-07-04] MEDS ORDERED: HYDROmorphone inj. 0.5 MG/0.5 ML DISP.SYRIN IV PRN (14:30)
--- NOTE | 2020-07-04 15:20 | NUR ---
Report received from ED RNBarbara
[2020-07-04 15:45] VITALS: BP 158/107
[2020-07-04] MEDS: normal saline 1000ml 1,000 ML IV SCH (15:47)
[2020-07-04] MEDS: multivitamins, therapeutics tablet PO SCH (16:13)
[2020-07-04] MEDS ORDERED: TRAZ-256 PO (16:18)
[2020-07-04] MEDS ORDERED: SERT-153 PO (16:18)
[2020-07-04] MEDS ORDERED: METF500T PO (16:18)
[2020-07-04] MEDS ORDERED: dextrose 50%-water 50ml dispensing syringe IV PRN ×2 (16:25)
[2020-07-04] MEDS ORDERED: glucagon, human recombinant 1mg kit SUBCUT PRN (16:25)
[2020-07-04] MEDS ORDERED: MESSAGE TO PHARMACY PO ONE (16:25)
[2020-07-04] MEDS ORDERED: dextrose ORAL solution 15 GM/59 ML bottle PO PRN ×2 (16:25)
[2020-07-04] MEDS: HYDROmorphone 1 mg/ml syringe IV PRN ×2 (17:43→21:31)
[2020-07-04] MEDS: sertraline 50mg tablet PO SCH (17:47)
[2020-07-04] MEDS: losartan 25mg tablet PO SCH (17:47)
--- NOTE | 2020-07-04 18:30 | NUR ---
Patient in room HAYDEN 350. I have received report from SAMUEL and had the opportunity to ask questions and assume patient care. ASSUMED CARE OF PT WITH RN STUDENT LAKISHA Jacobs
[2020-07-04] MEDS: insulin Lispro (HumaLOG) vial - multi-dose SQ SCH ×2 (19:02→20:56)
[2020-07-04] MEDS: ondansetron/PF 4mg/2ml inj IV PRN (19:04)
[2020-07-04] MEDS: HYDROcodone/acetaminophen 10/325mg tab PO PRN (19:06)
[2020-07-04 19:24] LABS: BASOPHILS % (AUTO) 0.1 % (0-1); EOSINOPHILS % (AUTO) 0.1 % (0-6); HEMATOCRIT 42.3 % (42.0-52.0); HEMOGLOBIN 14.1 g/dl (14.0-17.9); LYMPHOCYTES # (AUTO) 1.3 X10'3 (1.1-4.8); LYMPHOCYTES % (AUTO) 13.1 % (21-51); MEAN CORPUSCULAR HGB CONC 33.4 g/dL (33.0-36.5); MEAN CORPUSCULAR VOLUME 92.9 FL (78-98); MEAN PLATELET VOLUME 8.1 FL (7.4-10.4); MONOCYTES # (AUTO) 0.7 X10'3 (0-0.9); MONOCYTES % (AUTO) 6.5 % (2-12); NEUTROPHILS # (AUTO) 8.1 X10'3 (1.8-7.7); NEUTROPHILS % (AUTO) 80.2 % (42-75); PLATELET COUNT 286 X10'3 (140-440); RED BLOOD COUNT 4.55 X10'6 (4.70-6.10); RED CELL DISTRIBUTION WIDTH 12.2 % (11.5-14.5); WHITE BLOOD COUNT 10.2 X10'3 (4.5-11.0)
[2020-07-04 19:36] LABS: HEMOGLOBIN A1C 8.1 % (4.5-6.2)
[2020-07-04 19:54] LABS: PARTIAL THROMBOPLASTIN TIME 28 SECONDS (22-32)
[2020-07-04 20:00] VITALS: BP 147/98
[2020-07-04] MEDS: K and/or MAG REPLACEMENT MC SCH (20:00)
[2020-07-04 20:54] LABS: MAGNESIUM 1.9 MG/DL (1.5-2.4)
[2020-07-04] MEDS ORDERED: temazepam 15mg capsule PO PRN (21:00)
[2020-07-04] MEDS: insulin glargine (Lantus) pen - multi-dose SQ SCH (21:01)
[2020-07-04] MEDS: traZODone 50mg tablet PO SCH (21:02)
[2020-07-04] MEDS: heparin, porcine 5000 units/ml vial SQ SCH (21:03)
[2020-07-05] MEDS: normal saline 1000ml 1,000 ML IV SCH ×4 (00:30→21:44)
[2020-07-05] MEDS: HYDROcodone/acetaminophen 10/325mg tab PO PRN ×3 (00:38→17:56)
[2020-07-05] MEDS: HYDROmorphone 1 mg/ml syringe IV PRN ×4 (01:44→21:50)
[2020-07-05] MEDS: ondansetron/PF 4mg/2ml inj IV PRN ×3 (02:09→18:42)
--- NOTE | 2020-07-05 04:26 | NUR ---
Student documentation: I have reviewed and agree with all interventions, assessments performed and documented by LAKISHA Jacobs
--- NOTE | 2020-07-05 04:26 | NUR ---
Student Medication Administration: For this medication-pass time frame, all medication were reviewed, dispensed, administered and documented per hospital policy by LAKISHA Jacobs
--- NOTE | 2020-07-05 06:29 | NUR ---
Problems reprioritized. Patient report given, questions answered & plan of care reviewed with
[2020-07-05 06:44] LABS: BASOPHILS % (AUTO) 0.5 % (0-1); EOSINOPHILS % (AUTO) 0.4 % (0-6); HEMATOCRIT 40.6 % (42.0-52.0); HEMOGLOBIN 13.5 g/dl (14.0-17.9); LYMPHOCYTES # (AUTO) 1.9 X10'3 (1.1-4.8); LYMPHOCYTES % (AUTO) 19.5 % (21-51); MEAN CORPUSCULAR HGB CONC 33.2 g/dL (33.0-36.5); MEAN CORPUSCULAR VOLUME 93.5 FL (78-98); MEAN PLATELET VOLUME 8.1 FL (7.4-10.4); MONOCYTES # (AUTO) 0.7 X10'3 (0-0.9); MONOCYTES % (AUTO) 7.7 % (2-12); NEUTROPHILS # (AUTO) 6.9 X10'3 (1.8-7.7); NEUTROPHILS % (AUTO) 71.9 % (42-75); PLATELET COUNT 251 X10'3 (140-440); RED BLOOD COUNT 4.34 X10'6 (4.70-6.10); RED CELL DISTRIBUTION WIDTH 12.4 % (11.5-14.5); WHITE BLOOD COUNT 9.6 X10'3 (4.5-11.0)
[2020-07-05 06:47] VITALS: BP 129/86
[2020-07-05 07:05] LABS: ALANINE AMINOTRANSFERASE 62 U/L (12-78); ALBUMIN 3.8 G/DL (3.4-5.0); ALBUMIN/GLOBULIN RATIO 0.9 (1.1-1.5); ALKALINE PHOSPHATASE 113 IU/L (46-116); ANION GAP 17 (8-16); ASPARTATE AMINO TRANSFERASE 30 U/L (10-37); BILIRUBIN,TOTAL 0.9 MG/DL (0.1-1.0); BLOOD UREA NITROGEN 7 MG/DL (7-18); BUN/CREATININE RATIO 9.1 (5.4-32.0); CHLORIDE 102 MMOL/L (99-107); CREATININE 0.77 MG/DL (0.60-1.10); GLUCOSE 210 MG/DL (70-104); MAGNESIUM 2.3 MG/DL (1.5-2.4); SODIUM 137 MMOL/L (135-145); TOTAL CARBON DIOXIDE 17.7 MMOL/L (24-32); TOTAL PROTEIN 8.2 G/DL (6.4-8.2); eGFR > 90 ML/MIN
[2020-07-05] MEDS ORDERED: NORMAL SALINE IV PRN (07:40)
[2020-07-05] MEDS ORDERED: SINCALIDE IV PRN (07:40)
[2020-07-05] MEDS ORDERED: thiamine 100mg tablet PO SCH (08:00)
[2020-07-05] MEDS ORDERED: folic acid 1mg tablet PO SCH (08:00)
[2020-07-05] MEDS ORDERED: folic acid inj. 2 MG, thiamine inj. 100 MG, MVI, adult No.4 with vit. K 10 ML in dextro... IV SCH ×4 (08:00)
[2020-07-05] MEDS ORDERED: thiamine 100mg/ml 2ml inj. IM SCH (08:00)
[2020-07-05] MEDS: K and/or MAG REPLACEMENT MC SCH ×2 (08:00→20:00)
[2020-07-05] MEDS: losartan 25mg tablet PO SCH (09:07)
[2020-07-05] MEDS: multivitamins, therapeutics tablet PO SCH (09:08)
[2020-07-05] MEDS: sertraline 50mg tablet PO SCH (09:08)
[2020-07-05] MEDS: heparin, porcine 5000 units/ml vial SQ SCH ×2 (09:09→20:56)
[2020-07-05] MEDS: thiamine inj. 100 MG in normal saline 100ml IV soln 100 ML IV SCH (09:10)
[2020-07-05] MEDS: folic acid 1mg/0.2ml inj IV SCH (09:10)
[2020-07-05] MEDS: insulin Lispro (HumaLOG) vial - multi-dose SQ SCH ×3 (09:17→18:35)
[2020-07-05 11:00] VITALS: BP 144/77
--- NOTE | 2020-07-05 11:00 | NUR ---
Pt. expressed that he felt bad because he has "lied to" some healthcare workers including the doctors. States he [id number] said he was not a drinker or a light drinker but that he really drinks every day and he feels he is going through withdrawals at the moment. Pt. is not shaking and is not hypoglycemic at this time. Offered medication for anxiety however pt. stated he was in pain and would rather have pain medication at this time. Will continue to monitor while on my shift.
--- NOTE | 2020-07-05 11:09 | NUR ---
I have reviewed and agree with all medications administered and interventions performed by [facility] RN Student, Ame.
[2020-07-05 13:25] LABS: LIPASE 863 U/L (73-393)
--- NOTE | 2020-07-05 14:00 | NUR ---
MD Gallardo rounded on patient. Discussed negative results with pt. Discussed gallstones noted in hydascan. states possible gallstone related pancreatitis and recommendation is colectomy after pancreatitis is resolved. Pt. had one episode of nausea today however lipase trending down. Plans to take pt. to OR tomorrow afternoon.
--- NOTE | 2020-07-05 15:10 | NUR ---
DM consult: A1c 8.1%. RD phd internship met with pt at bedside for written/verbal DM and pancreatitis ed with RD contact information provided. Pt reports lowering A1c is d/t exercising regularly. Encouraged patient to continue exercising regularly seeing PCP regularly. Pt does report they sees PCP regularly and reports taking medications per Rx. Noted hx of EtOH, receiving thiamine, folic acid and MVI. Will follow up for full assessment on 07/09. Addendum: 07/05/20 at [address] Amended: Links added. Addendum: 07/05/20 at 1510 by Luis Manuel Torres RD FRANCISCO Approves
--- NOTE | 2020-07-05 17:52 | NUR ---
I have reviewed and agree with all medications administered and interventions performed by [facility] RN Student Ame.
[2020-07-05 18:00] VITALS: BP 138/94
--- NOTE | 2020-07-05 18:24 | NUR ---
Problems reprioritized. Patient report given, questions answered & plan of care reviewed with RNSarah.
--- NOTE | 2020-07-05 18:30 | NUR ---
Patient in room HAYDEN 350. I have received report from EDIS and had the opportunity to ask questions and assume patient care. ASSUMED CARE OF PT WITH RN STUDENT LAKISHA Jacobs
[2020-07-05] MEDS: insulin glargine (Lantus) pen - multi-dose SQ SCH (20:54)
[2020-07-05] MEDS: traZODone 50mg tablet PO SCH (20:56)
[2020-07-05 23:51] VITALS: BP 106/55
[2020-07-06] VITALS (13 sets, daily range): BP systolic 106–153; BP diastolic 55–97
[2020-07-06] MEDS: HYDROmorphone 1 mg/ml syringe IV PRN ×6 (01:06→21:02)
[2020-07-06] MEDS: LORazepam 1 MG tablet PO PRN (02:07)
[2020-07-06] MEDS: normal saline 1000ml 1,000 ML IV SCH (05:36)
--- NOTE | 2020-07-06 06:17 | NUR ---
Patient in room HAYDEN 350. I have received report from Sarah NASH and had the opportunity to ask questions and assume patient care.
--- NOTE | 2020-07-06 06:39 | NUR ---
Problems reprioritized. Patient report given, questions answered & plan of care reviewed with RIVERA.
[2020-07-06] MEDS: heparin, porcine 5000 units/ml vial SQ SCH ×2 (07:02→20:54)
[2020-07-06 07:40] LABS: BASOPHILS % (AUTO) 0.4 % (0-1); EOSINOPHILS # (AUTO) 0.1 X10'3 (0-0.9); EOSINOPHILS % (AUTO) 1.4 % (0-6); HEMATOCRIT 38.9 % (42.0-52.0); HEMOGLOBIN 13.1 g/dl (14.0-17.9); LYMPHOCYTES # (AUTO) 1.6 X10'3 (1.1-4.8); LYMPHOCYTES % (AUTO) 23.3 % (21-51); MEAN CORPUSCULAR HEMOGLOBIN 31.3 PG (27.0-31.0); MEAN CORPUSCULAR HGB CONC 33.8 g/dL (33.0-36.5); MEAN CORPUSCULAR VOLUME 92.6 FL (78-98); MEAN PLATELET VOLUME 8.2 FL (7.4-10.4); MONOCYTES # (AUTO) 0.5 X10'3 (0-0.9); MONOCYTES % (AUTO) 7.4 % (2-12); NEUTROPHILS # (AUTO) 4.8 X10'3 (1.8-7.7); NEUTROPHILS % (AUTO) 67.5 % (42-75); PLATELET COUNT 251 X10'3 (140-440); WHITE BLOOD COUNT 7.1 X10'3 (4.5-11.0)
[2020-07-06] MEDS: sertraline 50mg tablet PO SCH (07:47)
[2020-07-06] MEDS: thiamine inj. 100 MG in normal saline 100ml IV soln 100 ML IV SCH (07:48)
[2020-07-06] MEDS: folic acid 1mg/0.2ml inj IV SCH (07:48)
[2020-07-06] MEDS: ondansetron/PF 4mg/2ml inj IV PRN (07:52)
[2020-07-06] MEDS: multivitamins, therapeutics tablet PO SCH (07:52)
[2020-07-06] MEDS: losartan 25mg tablet PO SCH (07:53)
[2020-07-06] MEDS: K and/or MAG REPLACEMENT MC SCH ×2 (08:00→20:00)
[2020-07-06 08:22] LABS: ALANINE AMINOTRANSFERASE 51 U/L (12-78); ALBUMIN 3.4 G/DL (3.4-5.0); ALBUMIN/GLOBULIN RATIO 0.7 (1.1-1.5); ALKALINE PHOSPHATASE 110 IU/L (46-116); ANION GAP 14 (8-16); ASPARTATE AMINO TRANSFERASE 30 U/L (10-37); BLOOD UREA NITROGEN 6 MG/DL (7-18); BUN/CREATININE RATIO 9.5 (5.4-32.0); CALCIUM 8.9 MG/DL (8.5-10.1); CHLORIDE 103 MMOL/L (99-107); CREATININE 0.63 MG/DL (0.60-1.10); GLUCOSE 200 MG/DL (70-104); LIPASE 233 U/L (73-393); MAGNESIUM 2.2 MG/DL (1.5-2.4); POTASSIUM 3.8 MMOL/L (3.5-5.1); SODIUM 136 MMOL/L (135-145); TOTAL CARBON DIOXIDE 18.7 MMOL/L (24-32); eGFR > 90 ML/MIN
[2020-07-06] MEDS: insulin Lispro (HumaLOG) vial - multi-dose SQ SCH ×2 (08:28→12:42)
[2020-07-06 09:39] LABS: PARTIAL THROMBOPLASTIN TIME 30 SECONDS (22-32)
[2020-07-06] MEDS ORDERED: ringers solution, lacted 1,000 ML IV SCH ×2 (09:51→18:30)
[2020-07-06 10:16] LABS: CHOL/HDL RATIO 3.6 (0.00-4.99); CHOLESTEROL 223 MG/DL (0-200); HDL CHOLESTEROL 62 MG/DL (35-60); LDL CHOLESTEROL 116 MG/DL (50-100); TRIGLYCERIDES 211 MG/DL (20-135)
[2020-07-06] MEDS ORDERED: INDOCYANINE GREEN 25 MG/10 ML VIAL IV ONE (13:30)
--- NOTE | 2020-07-06 14:53 | NUR ---
Patient left the room with the OR staff while I was on the phone giving report to Jakob regarding another patient of mine. I tried to call PACU, the nurse I spoke to refusing to receive report from me. She said "I can't get report about this patient, I am not taking care of this patient!" I called OR charge nurse Kang about this. He said he will call PACU
--- NOTE | 2020-07-06 14:56 | NUR ---
Report given to Tequila da silva [facility] Addendum: 07/06/20 at 1511 by Urban Martinez RN I told her during report that Pepcid IV was not given as I did not expected he will be taken to OR earlier than the schedule of 4 pm.
[2020-07-06] MEDS ORDERED: famotidine/PF 10 mg/ml inj IV ONE (15:00)
[2020-07-06] MEDS ORDERED: HYDROmorphone 1 mg/ml syringe ONE (15:14)
--- NOTE | 2020-07-06 15:22 | NUR ---
Paged Dr. Jackson [facility] RN ext [phone]. RE: Graham Deal. His triglyceride and cholesterol levels are high. He is not on any medication for this.
--- NOTE | 2020-07-06 18:07 | NUR ---
Problems reprioritized. Patient report given, questions answered & plan of care reviewed with Judith NASH.
[2020-07-06] MEDS ORDERED: LIDOcaine 1% 30ml preserv. free vial ONE (18:23)
[2020-07-06] MEDS ORDERED: BUPIVAcaine/PF 2.5 mg/ml (0.25%) 30ml vial ONE (18:23)
[2020-07-06] MEDS ORDERED: proCHLORperazine 10 MG/2 ml inj IV PRN (18:30)
[2020-07-06] MEDS ORDERED: morphine 4 MG/ML inj SYRINge IV PRN (18:30)
[2020-07-06] MEDS ORDERED: ondansetron/PF 4mg/2ml inj IV PRN (18:30)
[2020-07-06] MEDS ORDERED: meperidine/PF 25mg/ml syringe IV PRN ×3 (18:30)
[2020-07-06] MEDS ORDERED: morphine 2 MG/ML inj. syringe IV PRN (18:30)
[2020-07-06] MEDS ORDERED: midazolam 1 mg/ML 2ml injection ONE (18:45)
[2020-07-06] MEDS ORDERED: fentaNYL /PF 50mcg/ml 5ml ampule ONE (18:46)
--- NOTE | 2020-07-06 18:51 | NUR ---
Patient in room HAYDEN 350. I have received report from Urban NASH and had the opportunity to ask questions and assume patient care.
--- NOTE | 2020-07-06 18:53 | NUR ---
Patient in room HAYDEN 344. I have received report from Urban NASH and had the opportunity to ask questions and assume patient care.
[2020-07-06] MEDS ORDERED: ondansetron/PF 4mg/2ml inj ONE (19:45)
[2020-07-06] MEDS ORDERED: glycopyrrolate 0.2mg/ml inj ONE (19:46)
[2020-07-06] MEDS ORDERED: neostigmine methylsulfate 1 MG/ML 10ml vial ONE (19:46)
[2020-07-06] MEDS ORDERED: rocuronium 10mg/ml inj IV ONE (19:46)
[2020-07-06] MEDS ORDERED: propofol inj 20 ML IV ONE (19:46)
--- NOTE | 2020-07-06 20:05 | NUR ---
Received from OR via BED , accompanied by Anesthesiologist DR AGRAWAL and report given by Anesthesiolgist. PATIENT WAKING UP, DENIES PAIN, V/S WNL, NEUROVASCULAR CHECKS INTACT, 20G PIV RUE, SCD ON, BANDAIDS TO LAP SIGHTS OF ABDOMEN CDI.
[2020-07-06] MEDS ORDERED: HYDROcodone/acetaminophen 5mg/325mg tablet PO PRN (20:25)
[2020-07-06] MEDS ORDERED: HYDROcodone/acetaminophen 10/325mg tab PO PRN (20:25)
--- NOTE | 2020-07-06 20:45 | NUR ---
Received report from Brian NASH in the recovery room. Pt arrived on the unit in his own bed with VSS, LR running at 100mls/hr and on room air. Pt had no signs of distress, will continue to monitor.
--- NOTE | 2020-07-06 20:45 | NUR ---
PATIENT A&OX4, DENIES PAIN, V/S WNL, NEUROVASCULAR CHECKS INTACT, 20G PIV RUE, SCD ON, BANDAIDS TO LAP SIGHTS OF ABDOMEN CDI, PATIENT TAKEN TO 350B WITH ALL BELONGINGS AND HOOKED UP TO MONITORS IN ROOM AND REPORT GIVEN TO RN WHO HAS TAKEN OVER PATIENT CARE.
[2020-07-06] MEDS: traZODone 50mg tablet PO SCH (20:51)
[2020-07-06] MEDS: HYDROcodone/acetaminophen 10/325mg tab PO PRN (23:46)
[2020-07-06] MEDS: insulin glargine (Lantus) pen - multi-dose SQ SCH (23:49)
[2020-07-07] VITALS: BP 136/63
[2020-07-07] MEDS: LORazepam 1 MG tablet PO PRN (00:26)
[2020-07-07 00:30] VITALS: BP 106/69
[2020-07-07] MEDS: HYDROmorphone 1 mg/ml syringe IV PRN ×7 (03:23→23:07)
[2020-07-07] MEDS: normal saline 1000ml 1,000 ML IV SCH ×3 (03:29→23:05)
--- NOTE | 2020-07-07 06:42 | NUR ---
Problems reprioritized. Patient report given, questions answered & plan of care reviewed with CHARITY Salazar.
--- NOTE | 2020-07-07 06:42 | NUR ---
Problems reprioritized. Patient report given, questions answered & plan of care reviewed with Marie NASH.
--- NOTE | 2020-07-07 06:50 | NUR ---
Patient in room HAYDEN 350. I have received report from CHARITY Wong and had the opportunity to ask questions and assume patient care.
[2020-07-07 07:00] VITALS: BP 154/94
[2020-07-07 07:14] LABS: BASOPHILS % (AUTO) 0.4 % (0-1); EOSINOPHILS # (AUTO) 0.1 X10'3 (0-0.9); EOSINOPHILS % (AUTO) 1.1 % (0-6); HEMATOCRIT 40.4 % (42.0-52.0); HEMOGLOBIN 13.4 g/dl (14.0-17.9); LYMPHOCYTES # (AUTO) 2.2 X10'3 (1.1-4.8); LYMPHOCYTES % (AUTO) 28.7 % (21-51); MEAN CORPUSCULAR HEMOGLOBIN 31.1 PG (27.0-31.0); MEAN CORPUSCULAR HGB CONC 33.3 g/dL (33.0-36.5); MEAN CORPUSCULAR VOLUME 93.5 FL (78-98); MEAN PLATELET VOLUME 8.2 FL (7.4-10.4); MONOCYTES # (AUTO) 0.5 X10'3 (0-0.9); MONOCYTES % (AUTO) 7.2 % (2-12); NEUTROPHILS # (AUTO) 4.7 X10'3 (1.8-7.7); NEUTROPHILS % (AUTO) 62.6 % (42-75); PLATELET COUNT 263 X10'3 (140-440); RED BLOOD COUNT 4.32 X10'6 (4.70-6.10); RED CELL DISTRIBUTION WIDTH 12.3 % (11.5-14.5); WHITE BLOOD COUNT 7.6 X10'3 (4.5-11.0)
[2020-07-07] MEDS: folic acid 1mg/0.2ml inj IV SCH (07:15)
[2020-07-07 07:41] LABS: ALANINE AMINOTRANSFERASE 73 U/L (12-78); ALBUMIN 3.3 G/DL (3.4-5.0); ALBUMIN/GLOBULIN RATIO 0.7 (1.1-1.5); ALKALINE PHOSPHATASE 112 IU/L (46-116); ANION GAP 12 (8-16); ASPARTATE AMINO TRANSFERASE 88 U/L (10-37); BILIRUBIN,TOTAL 1.1 MG/DL (0.1-1.0); BLOOD UREA NITROGEN 4 MG/DL (7-18); BUN/CREATININE RATIO 5.6 (5.4-32.0); CHLORIDE 102 MMOL/L (99-107); CREATININE 0.71 MG/DL (0.60-1.10); GLUCOSE 138 MG/DL (70-104); LIPASE 131 U/L (73-393); SODIUM 138 MMOL/L (135-145); TOTAL CARBON DIOXIDE 24.1 MMOL/L (24-32); eGFR > 90 ML/MIN
--- NOTE | 2020-07-07 07:46 | NUR ---
Dr. Jackson PAGER ID: [phone] MESSAGE: 350B- Graham Deal- Critical K of 3.0. Will replace as ordered.- Marie [phone]
[2020-07-07] MEDS: K and/or MAG REPLACEMENT MC SCH ×2 (08:00→19:46)
[2020-07-07] MEDS: thiamine inj. 100 MG in normal saline 100ml IV soln 100 ML IV SCH (08:09)
[2020-07-07] MEDS: potassium Cl 20 mEq SR tablet PO PRN ×2 (08:17→12:29)
[2020-07-07] MEDS: losartan 25mg tablet PO SCH (08:18)
[2020-07-07] MEDS: sertraline 50mg tablet PO SCH (08:19)
[2020-07-07] MEDS: multivitamins, therapeutics tablet PO SCH (08:19)
[2020-07-07] MEDS: heparin, porcine 5000 units/ml vial SQ SCH ×2 (08:20→19:38)
[2020-07-07] MEDS: insulin Lispro (HumaLOG) vial - multi-dose SQ SCH ×2 (10:09→15:09)
--- NOTE | 2020-07-07 11:11 | NUR ---
Discharge orders in for patient. Dr. Jackson wanting to wait for Dr. Gallardo to ok for discharge.
[2020-07-07] MEDS: HYDROcodone/acetaminophen 10/325mg tab PO PRN (12:28)
[2020-07-07 12:38] VITALS: BP 123/87
[2020-07-07] MEDS: ondansetron/PF 4mg/2ml inj IV PRN ×2 (13:16→19:38)
--- NOTE | 2020-07-07 13:39 | NUR ---
Dr. Gallardo in to see patient. Per Dr. Gallardo patient not discharging today.
[2020-07-07] MEDS ORDERED: oxyCODONE/APAP 10/325mg tablet PO PRN (13:40)
[2020-07-07] MEDS ORDERED: oxyCODONE/APAP 5-325mg tablet PO PRN (13:40)
[2020-07-07 18:00] VITALS: BP 154/102
--- NOTE | 2020-07-07 18:43 | NUR ---
Patient in room HAYDEN 350. I have received report from Marie NASH and had the opportunity to ask questions and assume patient care.
[2020-07-07] MEDS: insulin glargine (Lantus) pen - multi-dose SQ SCH (21:34)
[2020-07-07] MEDS: traZODone 50mg tablet PO SCH (21:36)
[2020-07-07 22:57] VITALS: BP 156/106
--- NOTE | 2020-07-08 01:43 | NUR ---
Placed pt on pulse ox before going to sleep this evening. I proceeded to check the pt every half hour and found sats were running in the low 90's. At approximately 0135 I found the pt satting in the mid 70's to low 80's. Pt was placed on 2L of O2 via nasal cannula. Pt now satting between 95-98%.
[2020-07-08] MEDS ORDERED: magnesium 4gm in 100ml NS 100 ML IV PRN (02:00)
[2020-07-08] MEDS ORDERED: potassium Cl 40MEQ/1/2NS 520ml 520 ML IV PRN (02:00)
[2020-07-08] MEDS ORDERED: magnesium Cl slow-release 64mg tablet PO PRN (02:00)
[2020-07-08] MEDS ORDERED: potassium Cl 20 mEq SR tablet PO PRN ×2 (02:00)
[2020-07-08] MEDS: HYDROmorphone 1 mg/ml syringe IV PRN ×2 (04:14→07:07)
[2020-07-08 06:00] VITALS: BP 132/88
[2020-07-08 06:20] LABS: BASOPHILS % (AUTO) 0.4 % (0-1); EOSINOPHILS # (AUTO) 0.1 X10'3 (0-0.9); EOSINOPHILS % (AUTO) 2.3 % (0-6); HEMATOCRIT 36.4 % (42.0-52.0); HEMOGLOBIN 12.2 g/dl (14.0-17.9); LYMPHOCYTES # (AUTO) 1.7 X10'3 (1.1-4.8); LYMPHOCYTES % (AUTO) 31.1 % (21-51); MEAN CORPUSCULAR HEMOGLOBIN 31.3 PG (27.0-31.0); MEAN CORPUSCULAR HGB CONC 33.5 g/dL (33.0-36.5); MEAN CORPUSCULAR VOLUME 93.6 FL (78-98); MEAN PLATELET VOLUME 7.6 FL (7.4-10.4); MONOCYTES # (AUTO) 0.5 X10'3 (0-0.9); MONOCYTES % (AUTO) 9.6 % (2-12); NEUTROPHILS # (AUTO) 3.1 X10'3 (1.8-7.7); NEUTROPHILS % (AUTO) 56.6 % (42-75); PLATELET COUNT 243 X10'3 (140-440); RED BLOOD COUNT 3.89 X10'6 (4.70-6.10); RED CELL DISTRIBUTION WIDTH 12.1 % (11.5-14.5); WHITE BLOOD COUNT 5.6 X10'3 (4.5-11.0)
[2020-07-08 06:31] LABS: ALANINE AMINOTRANSFERASE 83 U/L (12-78); ALBUMIN/GLOBULIN RATIO 0.7 (1.1-1.5); ALKALINE PHOSPHATASE 113 IU/L (46-116); ANION GAP 8 (8-16); ASPARTATE AMINO TRANSFERASE 95 U/L (10-37); BILIRUBIN,TOTAL 1.2 MG/DL (0.1-1.0); BLOOD UREA NITROGEN 5 MG/DL (7-18); BUN/CREATININE RATIO 7.1 (5.4-32.0); CALCIUM 8.8 MG/DL (8.5-10.1); CHLORIDE 105 MMOL/L (99-107); GLUCOSE 162 MG/DL (70-104); LIPASE 117 U/L (73-393); MAGNESIUM 1.9 MG/DL (1.5-2.4); POTASSIUM 3.6 MMOL/L (3.5-5.1); SODIUM 138 MMOL/L (135-145); TOTAL CARBON DIOXIDE 25.1 MMOL/L (24-32); TOTAL PROTEIN 7.2 G/DL (6.4-8.2); eGFR > 90 ML/MIN
--- NOTE | 2020-07-08 06:42 | NUR ---
Problems reprioritized. Patient report given, questions answered & plan of care reviewed with Marie NASH.
[2020-07-08] MEDS: folic acid 1mg/0.2ml inj IV SCH (07:07)
[2020-07-08] MEDS: ondansetron/PF 4mg/2ml inj IV PRN (07:07)
[2020-07-08] MEDS: multivitamins, therapeutics tablet PO SCH (07:20)
[2020-07-08] MEDS: losartan 25mg tablet PO SCH (07:20)
[2020-07-08] MEDS: sertraline 50mg tablet PO SCH (07:20)
[2020-07-08] MEDS: thiamine inj. 100 MG in normal saline 100ml IV soln 100 ML IV SCH (07:21)
[2020-07-08] MEDS: heparin, porcine 5000 units/ml vial SQ SCH ×2 (07:21→20:04)
[2020-07-08] MEDS: K and/or MAG REPLACEMENT MC SCH ×4 (08:00→20:00)
[2020-07-08] MEDS: insulin Lispro (HumaLOG) vial - multi-dose SQ SCH ×3 (09:35→21:03)
--- NOTE | 2020-07-08 10:07 | NUR ---
Insulin reviewed, dispensed, administered and documented per policy by [facility].
[2020-07-08] MEDS ORDERED: HYDROcodone/acetaminophen 5mg/325mg tablet PO PRN (10:40)
[2020-07-08] MEDS ORDERED: metoclopramide 10mg/10 ml UD oral solution PO PRN ×2 (10:45→11:04)
[2020-07-08] MEDS ORDERED: methylnaltrexone br 12mg/0.6ml inj***SubQ only SQ SCH (10:55)
[2020-07-08] MEDS ORDERED: ondansetron/PF 4mg/2ml inj IV ONE (10:55)
[2020-07-08 11:00] VITALS: BP 147/66
[2020-07-08] MEDS: HYDROcodone/acetaminophen 10/325mg tab PO PRN ×2 (12:12→16:59)
--- NOTE | 2020-07-08 14:58 | NUR ---
Patient room had stool odor. Asked patient if he had passed any gas or had any bowel movements today and patient denies. Patient verbalized to this RN this morning that he did indeed pass "some gas" but is now denying to this RN and also student nurses that he has passed gas.
[2020-07-08 18:00] VITALS: BP 178/110
--- NOTE | 2020-07-08 18:27 | NUR ---
Problems reprioritized. Patient report given, questions answered & plan of care reviewed with CHARITY Bingham.
--- NOTE | 2020-07-08 18:39 | NUR ---
Blood glucose 125, patient has not eaten dinner at this time, no insulin coverage at this time.
--- NOTE | 2020-07-08 19:02 | NUR ---
Patient in room HAYDEN 350. I have received report from SAMULE NASH and had the opportunity to ask questions and assume patient care.
[2020-07-08] MEDS: traZODone 50mg tablet PO SCH (20:04)
[2020-07-08] MEDS: insulin glargine (Lantus) pen - multi-dose SQ SCH (21:00)
[2020-07-09] VITALS: BP 137/92
[2020-07-09 06:04] LABS: BASOPHILS % (AUTO) 0.4 % (0-1); EOSINOPHILS # (AUTO) 0.1 X10'3 (0-0.9); EOSINOPHILS % (AUTO) 1.5 % (0-6); HEMATOCRIT 38.3 % (42.0-52.0); HEMOGLOBIN 12.7 g/dl (14.0-17.9); MEAN CORPUSCULAR HEMOGLOBIN 30.8 PG (27.0-31.0); MEAN CORPUSCULAR HGB CONC 33.3 g/dL (33.0-36.5); MEAN CORPUSCULAR VOLUME 92.7 FL (78-98); MEAN PLATELET VOLUME 7.7 FL (7.4-10.4); MONOCYTES # (AUTO) 0.6 X10'3 (0-0.9); MONOCYTES % (AUTO) 8.3 % (2-12); NEUTROPHILS # (AUTO) 4.6 X10'3 (1.8-7.7); NEUTROPHILS % (AUTO) 62.8 % (42-75); PLATELET COUNT 297 X10'3 (140-440); RED BLOOD COUNT 4.13 X10'6 (4.70-6.10); WHITE BLOOD COUNT 7.3 X10'3 (4.5-11.0)
[2020-07-09 06:25] LABS: ALANINE AMINOTRANSFERASE 100 U/L (12-78); ALBUMIN 3.5 G/DL (3.4-5.0); ALBUMIN/GLOBULIN RATIO 0.7 (1.1-1.5); ALKALINE PHOSPHATASE 139 IU/L (46-116); ANION GAP 9 (8-16); ASPARTATE AMINO TRANSFERASE 93 U/L (10-37); BILIRUBIN,TOTAL 1.2 MG/DL (0.1-1.0); BLOOD UREA NITROGEN 5 MG/DL (7-18); BUN/CREATININE RATIO 6.6 (5.4-32.0); CALCIUM 9.8 MG/DL (8.5-10.1); CHLORIDE 100 MMOL/L (99-107); CREATININE 0.76 MG/DL (0.60-1.10); GLUCOSE 160 MG/DL (70-104); LIPASE 103 U/L (73-393); POTASSIUM 3.5 MMOL/L (3.5-5.1); SODIUM 136 MMOL/L (135-145); TOTAL CARBON DIOXIDE 27.3 MMOL/L (24-32); TOTAL PROTEIN 8.2 G/DL (6.4-8.2); eGFR > 90 ML/MIN
--- NOTE | 2020-07-09 06:28 | NUR ---
Problems reprioritized. Patient report given, questions answered & plan of care reviewed with KATHRYN NASH.
--- NOTE | 2020-07-09 07:04 | NUR ---
Patient in room HAYDEN 350. I have received report from CHARITY Bingham and had the opportunity to ask questions and assume patient care.
[2020-07-09] MEDS: thiamine inj. 100 MG in normal saline 100ml IV soln 100 ML IV SCH (07:53)
[2020-07-09] MEDS: losartan 25mg tablet PO SCH (07:57)
[2020-07-09 08:00] VITALS: BP 139/95
[2020-07-09] MEDS: multivitamins, therapeutics tablet PO SCH (08:00)
[2020-07-09] MEDS: sertraline 50mg tablet PO SCH (08:00)
[2020-07-09] MEDS: heparin, porcine 5000 units/ml vial SQ SCH (08:01)
[2020-07-09] MEDS: HYDROcodone/acetaminophen 10/325mg tab PO PRN (08:10)
[2020-07-09] MEDS: folic acid 1mg/0.2ml inj IV SCH (08:13)
[2020-07-09] MEDS: insulin Lispro (HumaLOG) vial - multi-dose SQ SCH (09:54)
--- NOTE | 2020-07-09 15:18 | NUR ---
Pt discharge home in stable condition. tolerating diet well. no c/o pain. discharge and medication instruction given to pt. IV removed. pt was escorted to main lobby. left the hospital via private vehicle driving by himself.
== END 2020-07-09 13:41 | disposition home or self-care (01) | DRG 418 ==
LOC: ER 09:48 → ED HOLD 14:27 → EDBEDREQ 14:55 → SUR 3N 15:37
PROVIDERS: ADMIT Family Medicine; ATTEND Internal Medicine
PROC: CF1C1ZZ Planar Nuclear Medicine Imaging of Hepatobiliary System, All using Technetium 99m (Tc-99m) (ICD-10-PCS; 2020-07-05)
PROC: 8E0W4CZ Robotic Assisted Procedure of Trunk Region, Percutaneous Endoscopic Approach (ICD-10-PCS; 2020-07-06)
PROC: BF131ZZ Fluoroscopy of Gallbladder and Bile Ducts using Low Osmolar Contrast (ICD-10-PCS; 2020-07-06)
PROC: 0FT44ZZ Resection of Gallbladder, Percutaneous Endoscopic Approach (ICD-10-PCS; principal; 2020-07-06 18:41)
DX: K85.10 Biliary acute pancreatitis without necrosis or infection (principal); E87.1 Hypo-osmolality and hyponatremia; E11.65 Type 2 diabetes mellitus with hyperglycemia; E78.5 Hyperlipidemia, unspecified; F32.9 Major depressive disorder, single episode, unspecified; Z20.822 Contact with and (suspected) exposure to COVID-19; G47.00 Insomnia, unspecified; G89.29 Other chronic pain; I10 Essential (primary) hypertension; K82.8 Other specified diseases of gallbladder; K86.1 Other chronic pancreatitis; R19.7 Diarrhea, unspecified; R74.01 Elevation of levels of liver transaminase levels; Z88.0 Allergy status to penicillin; Z79.899 Other long term (current) drug therapy; E87.6 Hypokalemia
CPT/HCPCS: 96361; 96374; 96375; 96376; 99285; Z7506; Z7508; 36415; 71045; 76700; 76705; 78226; 80053; 80061; 82948; 83036; 83690; 83735; 85025; 85610; 85730; 87081; 87426; 93005; A4215; A4618; A7000; A9537; G0378; J1170; J1644; J1815; J2001; J2212; J2250; J2270; J2405; J2704; J2710; J3010; J3411; J3490; J7030; J7120; J8597

== ENCOUNTER 2020-08-25 05:09 | Inpatient (IN) | payer BC ==
[~2020-08-25] VITALS: Ht 182.9 cm; Wt 82.0 kg
[~2020-08-25 05:09] MED LIST changes: -BLOO-1585; -INSU100V11 SQ; -LANTUS SQ; +METF500T PO; -POTA20TA19 PO; +SERT-153 PO; +TRAZ-256 PO; -[UNRECOGNIZED DRUG - CODE]; -[UNRECOGNIZED DRUG - CODE] METER; -[UNRECOGNIZED DRUG - CODE] TOP
[2020-08-25] MEDS ORDERED: normal saline 1000ML IV soln IVB ONE (05:45)
[2020-08-25] MEDS ORDERED: ondansetron/PF 4mg/2ml inj IV ONE (05:45)
[2020-08-25 05:52] LABS: CLARITY,URINE CLEAR (Clear); COLOR,URINE STRAW (Yellow); GLUCOSE, URINE >=1000 mg/dl (Neg); KETONES,URINE >=80 mg/dl (Neg); LEUKOCYTE ESTERASE ,URINE NEGATIVE (Neg); NITRITES, URINE NEGATIVE (Neg); OCCULT BLOOD,URINE TRACE-INTACT (Neg); PROTEIN,URINE NEGATIVE (Neg); UROBILINOGEN,URINE 0.2 E.U/dL (0.2-1.0)
[2020-08-25 05:54] LABS: BASOPHILS % (AUTO) 0.3 % (0-1); EOSINOPHILS % (AUTO) 0.1 % (0-6); HEMATOCRIT 46.5 % (42.0-52.0); HEMOGLOBIN 15.2 g/dl (14.0-17.9); LYMPHOCYTES # (AUTO) 3.7 X10'3 (1.1-4.8); LYMPHOCYTES % (AUTO) 43.2 % (21-51); MEAN CORPUSCULAR HEMOGLOBIN 31.6 PG (27.0-31.0); MEAN CORPUSCULAR HGB CONC 32.7 g/dL (33.0-36.5); MEAN CORPUSCULAR VOLUME 96.9 FL (78-98); MEAN PLATELET VOLUME 9.4 FL (7.4-10.4); MONOCYTES # (AUTO) 0.5 X10'3 (0-0.9); MONOCYTES % (AUTO) 5.9 % (2-12); NEUTROPHILS # (AUTO) 4.4 X10'3 (1.8-7.7); NEUTROPHILS % (AUTO) 50.5 % (42-75); PLATELET COUNT 268 X10'3 (140-440); RED CELL DISTRIBUTION WIDTH 12.6 % (11.5-14.5); WHITE BLOOD COUNT 8.6 X10'3 (4.5-11.0)
[2020-08-25 06:00] LABS: UA COLLECTION TYPE CLN CATCH MIDSTREAM
[2020-08-25 06:04] LABS: BACTERIA,URINE NONE SEEN /HPF (Neg); MUCUS STRANDS NONE SEEN /LPF (Neg); RBC,URINE NONE SEEN /HPF (0-2); SQUAMOUS EPITHELIAL CELL,UR FEW /LPF (FEW); WBC,URINE NONE SEEN /HPF (0-4)
[2020-08-25] MEDS ORDERED: ketorolac trometh inj. 60 MG/2 ML VIAL IM ONE (06:05)
[2020-08-25] MEDS ORDERED: ondansetron 4mg rapidly disintigrating tab PO ONE (06:05)
[2020-08-25 06:06] LABS: ALANINE AMINOTRANSFERASE 56 U/L (12-78); ALBUMIN 4.4 G/DL (3.4-5.0); ALBUMIN/GLOBULIN RATIO 0.9 (1.1-1.5); ALKALINE PHOSPHATASE 161 IU/L (46-116); ANION GAP 30 (8-16); ASPARTATE AMINO TRANSFERASE 27 U/L (10-37); BILIRUBIN,TOTAL 1.2 MG/DL (0.1-1.0); BLOOD UREA NITROGEN 21 MG/DL (7-18); BUN/CREATININE RATIO 11.6 (5.4-32.0); CALCIUM 10.7 MG/DL (8.5-10.1); CHLORIDE 79 MMOL/L (99-107); CREATININE 1.81 MG/DL (0.60-1.10); LIPASE 732 U/L (73-393); SODIUM 124 MMOL/L (135-145); TOTAL CARBON DIOXIDE 15.2 MMOL/L (24-32); TOTAL PROTEIN 9.5 G/DL (6.4-8.2); eGFR 52 ML/MIN
--- NOTE | 2020-08-25 06:09 | NUR ---
[address] ATTEMPTS AT PIV FAILED. DR[address] SILVA AT BEDSIDE AND REPORTS HE WILL ORDER PO AND IM MEDS FOR NAUSEA AND PAIN.
[2020-08-25 06:17] LABS: POTASSIUM 4.8 MMOL/L (3.5-5.1)
[2020-08-25 06:18] LABS: GLUCOSE 853 MG/DL (70-104)
[2020-08-25] MEDS ORDERED: sodium phosphate inj. 30 MMOL in dextrose 5%-water 250 ML IV PRN ×2 (06:20→08:20)
[2020-08-25] MEDS ORDERED: Neutra Phos packet PO PRN ×2 (06:20→08:20)
[2020-08-25] MEDS ORDERED: potassium Cl 40MEQ/1/2NS 520ml 520 ML IV PRN ×6 (06:20→08:20)
[2020-08-25] MEDS ORDERED: potassium Cl 20 mEq SR tablet PO PRN ×6 (06:20→08:20)
[2020-08-25] MEDS ORDERED: Insulin Reg/NS 100units/100mL 100 ML IV SCH (06:20)
[2020-08-25] MEDS ORDERED: potassium CL 20mEq in D5-1/2NS 1,000 ML IV PRN ×2 (06:20→08:20)
[2020-08-25] MEDS ORDERED: sodium phosphate inj. 15 MMOL in dextrose 5%-water 250 ML IV PRN ×2 (06:20→08:20)
[2020-08-25] MEDS ORDERED: normal saline 1000ml 1,000 ML IV SCH (06:20)
[2020-08-25] MEDS ORDERED: sodium bicarbonate (8.4%) inj. 50 MEQ in dextrose 5% water 500ml 250 ML IV PRN ×2 (06:20→08:20)
[2020-08-25] MEDS ORDERED: sodium bicarbonate (8.4%) inj. 100 MEQ in dextrose 5% water 500ml 500 ML IV PRN ×2 (06:20→08:20)
[2020-08-25] MEDS ORDERED: insulin regular, human U-100 3ml vial - multi-dose IV PRN ×2 (06:20→08:20)
--- NOTE | 2020-08-25 06:22 | NUR ---
GLUCOSE 853 ,, DR SILVA AWARE. PT REPORTS HISTORY OF DM TYPE 2.
--- NOTE | 2020-08-25 06:29 | NUR ---
assumed care of patient, he is laying comfortably on the gurney not in any distress at this time. The application dba attempted three IV starts to no avail.
[2020-08-25 06:58] LABS: ABG BASE EXCESS -13.9 mmol/L (-2.0-2.0); ABG HCO3 10.4 mmol/L (22.0-26.0); ABG OXYGEN SATURATION 97.5 % (94-97); ABG PCO2 (T) 22.4 mmHg (35.0-48.0); ABG PO2 (T) 113.6 mmHg (75.0-100.0); ALLEN'S TEST POSITIVE; FCOHb 0.3 % (0.0-3.9); FMetHb 0.4 % (0.0-1.5); FO2Hb 96.8 % (94-97); TOTAL HEMOGLOBIN 15.8 G/dl (14.0-18.0)
[2020-08-25] MEDS ORDERED: K and/or MAG REPLACEMENT MC SCH ×2 (08:00→20:00)
[2020-08-25] MEDS ORDERED: acetaminophen 325mg tablet PO PRN ×2 (08:20)
[2020-08-25] MEDS ORDERED: magnesium 2GM in 50ml NS 50 ML IV PRN (08:20)
[2020-08-25] MEDS ORDERED: magnesium Cl slow-release 64mg tablet PO PRN (08:20)
[2020-08-25] MEDS ORDERED: magnesium 4gm in 100ml NS 100 ML IV PRN (08:20)
[2020-08-25 08:48] LABS: ALBUMIN 4.2 G/DL (3.4-5.0); ANION GAP 31 (8-16); BLOOD UREA NITROGEN 24 MG/DL (7-18); BUN/CREATININE RATIO 15.3 (5.4-32.0); CALCIUM 10.6 MG/DL (8.5-10.1); CHLORIDE 83 MMOL/L (99-107); CREATININE 1.57 MG/DL (0.60-1.10); PHOSPHORUS 6.6 MG/DL (2.3-4.5); SODIUM 127 MMOL/L (135-145); eGFR 61 ML/MIN
[2020-08-25 08:50] LABS: POTASSIUM 4.9 MMOL/L (3.5-5.1)
[2020-08-25 08:53] LABS: GLUCOSE 676 MG/DL (70-104)
[2020-08-25 08:54] LABS: TOTAL CARBON DIOXIDE 12.7 MMOL/L (24-32)
[2020-08-25] MEDS: normal saline 1000ml 1,000 ML IV SCH ×6 (10:02→20:20)
[2020-08-25] MEDS: morphine 4 MG/ML inj SYRINge IV PRN ×5 (10:09→22:54)
[2020-08-25 10:44] LABS: ALBUMIN 4.1 G/DL (3.4-5.0); ANION GAP 30 (8-16); BLOOD UREA NITROGEN 21 MG/DL (7-18); BUN/CREATININE RATIO 13.8 (5.4-32.0); CALCIUM 10.2 MG/DL (8.5-10.1); CHLORIDE 90 MMOL/L (99-107); CREATININE 1.52 MG/DL (0.60-1.10); POTASSIUM 5.5 MMOL/L (3.5-5.1); SODIUM 133 MMOL/L (135-145); eGFR 64 ML/MIN
[2020-08-25 10:50] LABS: TOTAL CARBON DIOXIDE 13.5 MMOL/L (24-32)
--- NOTE | 2020-08-25 11:40 | NUR ---
Break RN: HS RN has attempted U/S IV, not patent. Second bolus infusing
[2020-08-25 11:56] LABS: GLUCOSE 572 MG/DL (70-104)
[2020-08-25] MEDS: Insulin Reg/NS 100units/100mL 100 ML IV SCH ×2 (12:03→20:08)
[2020-08-25] MEDS ORDERED: insulin regular, human 10 units/0.1 ml syringe IV ONE (12:50)
[2020-08-25 14:44] LABS: PHOSPHORUS 3.7 MG/DL (2.3-4.5)
[2020-08-25] MEDS: MESSAGE TO NURSING PO SCH (16:00)
[2020-08-25] MEDS ORDERED: iohexol 300mg/ml 100ml inj. ONE (16:09)
[2020-08-25] MEDS: ondansetron/PF 4mg/2ml inj IV PRN ×2 (17:01→23:44)
--- NOTE | 2020-08-25 17:45 | NUR ---
RECEIVED REPORT FROM ED. PATIENT ARRIVED TO FLOOR VIA GURNEY.PATIENT DROWSY, DENIES PAIN, SOB AND OR NAUSEA AT THIS TIME.CALLED PHARMACY FOR NEW INSULIN BAG. HOB UP CALL LIGHT IN REACH, BED LOW AND LOCKED.AT 1800 REPORTED OFF TO FRESH WORK WRAPPER LAYER. PATIENT ARRIVED WITH NS AT RATE OF 250. ORDER PLACED FOR D5NS BY ON COMING SHIFT RN.STAT CMP ORDERED ALSO. INSULIN GTT INFUSING AT FIVE UNITS PER HOUR.LAST BS PRIOR TO ARRIVAL WAS 262. WILL RECHECK.NS CONTINUE S UNTIL D5NS RECEIVED BY PHARMACY. Addendum: 08/25/20 at 1944 by Rose Mahajan RN Amended: Links added.
[2020-08-25 18:00] VITALS: BP 127/79
[2020-08-25] MEDS: K and/or MAG REPLACEMENT MC SCH (20:00)
[2020-08-25 20:27] LABS: ABG BASE EXCESS -13.5 mmol/L (-2.0-2.0); ABG HCO3 11.2 mmol/L (22.0-26.0); ABG PCO2 (T) 24.2 mmHg (35.0-48.0); ABG PO2 (T) 119.8 mmHg (75.0-100.0); ALLEN'S TEST POSITIVE; FCOHb 0.3 % (0.0-3.9); FMetHb 0.4 % (0.0-1.5); FO2Hb 97.3 % (94-97); TOTAL HEMOGLOBIN 14.3 G/dl (14.0-18.0)
[2020-08-25] MEDS ORDERED: temazepam 15mg capsule PO PRN (21:00)
[2020-08-25 21:11] LABS: ALANINE AMINOTRANSFERASE 46 U/L (12-78); ALBUMIN/GLOBULIN RATIO 0.9 (1.1-1.5); ALKALINE PHOSPHATASE 134 IU/L (46-116); ANION GAP 21 (8-16); ASPARTATE AMINO TRANSFERASE 22 U/L (10-37); BLOOD UREA NITROGEN 12 MG/DL (7-18); BUN/CREATININE RATIO 9.8 (5.4-32.0); CALCIUM 8.9 MG/DL (8.5-10.1); CHLORIDE 102 MMOL/L (99-107); CREATININE 1.23 MG/DL (0.60-1.10); GLUCOSE 229 MG/DL (70-104); MAGNESIUM 2.4 MG/DL (1.5-2.4); PHOSPHORUS 1.9 MG/DL (2.3-4.5); SODIUM 138 MMOL/L (135-145); TOTAL CARBON DIOXIDE 15.2 MMOL/L (24-32); TOTAL PROTEIN 8.4 G/DL (6.4-8.2); eGFR 82 ML/MIN
[2020-08-25] MEDS ORDERED: proCHLORperazine 10 MG/2 ml inj IV ONE (21:15)
[2020-08-25 22:30] VITALS: BP 122/79
[2020-08-25] MEDS: heparin, porcine 5000 units/ml vial SQ SCH (23:01)
--- NOTE | 2020-08-26 | NUR ---
Called Dr Jackson, about blood sugars remaining high despite lowering d5 to 50 ml/hr running with insulin @ 5. Dr asked to switch from d5 to NS.
[2020-08-26] MEDS ORDERED: potassium Cl 20mEq in NS 1,000 ML IV SCH (00:05)
[2020-08-26] MEDS: normal saline 1000ml 1,000 ML IV SCH ×4 (00:20→17:41)
[2020-08-26] MEDS: morphine 4 MG/ML inj SYRINge IV PRN ×3 (00:28→04:31)
[2020-08-26 02:17] VITALS: BP 121/80
[2020-08-26] MEDS ORDERED: proCHLORperazine 10 MG/2 ml inj IV PRN (03:35)
[2020-08-26 04:20] LABS: ALBUMIN 3.9 G/DL (3.4-5.0); ANION GAP 18 (8-16); BLOOD UREA NITROGEN 10 MG/DL (7-18); BUN/CREATININE RATIO 8.4 (5.4-32.0); CHLORIDE 105 MMOL/L (99-107); CREATININE 1.19 MG/DL (0.60-1.10); GLUCOSE 116 MG/DL (70-104); MAGNESIUM 2.3 MG/DL (1.5-2.4); PHOSPHORUS 1.6 MG/DL (2.3-4.5); POTASSIUM 3.9 MMOL/L (3.5-5.1); SODIUM 141 MMOL/L (135-145); TOTAL CARBON DIOXIDE 17.8 MMOL/L (24-32); eGFR 85 ML/MIN
--- NOTE | 2020-08-26 06:19 | NUR ---
Problems reprioritized. Patient report given questions answered & plan of care reviewed with Nery NASH.
[2020-08-26 06:30] VITALS: BP 125/82
[2020-08-26] MEDS: morphine 2 MG/ML inj. syringe IV PRN ×2 (07:23→23:39)
[2020-08-26] MEDS: K and/or MAG REPLACEMENT MC SCH ×2 (08:00→19:54)
[2020-08-26] MEDS: ondansetron/PF 4mg/2ml inj IV PRN (08:29)
[2020-08-26] MEDS: pantoprazole 40mg Tablet.DR PO SCH (08:29)
[2020-08-26] MEDS: losartan 25mg tablet PO SCH (08:30)
[2020-08-26] MEDS: sertraline 50mg tablet PO SCH (08:30)
[2020-08-26] MEDS: heparin, porcine 5000 units/ml vial SQ SCH ×2 (08:37→19:52)
[2020-08-26 09:10] LABS: ALBUMIN 3.8 G/DL (3.4-5.0); ANION GAP 13 (8-16); BLOOD UREA NITROGEN 10 MG/DL (7-18); BUN/CREATININE RATIO 8.1 (5.4-32.0); CALCIUM 9.2 MG/DL (8.5-10.1); CHLORIDE 104 MMOL/L (99-107); CREATININE 1.23 MG/DL (0.60-1.10); GLUCOSE 97 MG/DL (70-104); MAGNESIUM 2.4 MG/DL (1.5-2.4); PHOSPHORUS 1.4 MG/DL (2.3-4.5); SODIUM 140 MMOL/L (135-145); TOTAL CARBON DIOXIDE 23.4 MMOL/L (24-32); eGFR 82 ML/MIN
[2020-08-26 09:14] LABS: POTASSIUM 3.7 MMOL/L (3.5-5.1)
[2020-08-26] MEDS: HYDROcodone/acetaminophen 5mg/325mg tablet PO PRN ×3 (09:22→20:57)
[2020-08-26 10:00] VITALS: BP 117/78
[2020-08-26] MEDS ORDERED: glucagon, human recombinant 1mg kit SUBCUT PRN (10:50)
[2020-08-26] MEDS ORDERED: MESSAGE TO PHARMACY PO ONE (10:50)
[2020-08-26] MEDS ORDERED: dextrose ORAL solution 15 GM/59 ML bottle PO PRN ×2 (10:50)
[2020-08-26] MEDS ORDERED: dextrose 50%-water 50ml dispensing syringe IV PRN ×2 (10:50)
[2020-08-26 11:41] LABS: LIPASE 2103 U/L (73-393)
[2020-08-26 15:44] LABS: ALBUMIN 3.6 G/DL (3.4-5.0); ANION GAP 20 (8-16); BLOOD UREA NITROGEN 11 MG/DL (7-18); BUN/CREATININE RATIO 10.1 (5.4-32.0); CALCIUM 8.7 MG/DL (8.5-10.1); CHLORIDE 101 MMOL/L (99-107); CREATININE 1.09 MG/DL (0.60-1.10); GLUCOSE 294 MG/DL (70-104); POTASSIUM 3.7 MMOL/L (3.5-5.1); SODIUM 136 MMOL/L (135-145); TOTAL CARBON DIOXIDE 15.4 MMOL/L (24-32); eGFR > 90 ML/MIN
[2020-08-26 16:00] VITALS: BP 127/85
--- NOTE | 2020-08-26 16:03 | NUR ---
DM consult: Pt admit DX DKA, suspected pancreatitis, HTN, hypercalcemia, per MD note. Noted pt A1c 8.9 and pt BG 853 upon admit. Pt was last admitted 07/04 and received written/verbal DM and pancreatitis educations; pt was provided with RD contact information at that time. Will monitor for further ed needs. Diet advanced from NPO to clear liquids. Pending PO at future meals with diet advancement. No documented BM this admit. Will continue to monitor. Recommendations: 1. Advance diet to CHO/low fat control diet as medically indicated 2. Bowel care per rx 3. Scaled wt this admit Addendum: 08/26/20 at [address] Amended: Links added. Addendum: 08/26/20 at 1604 by Luis Manuel Torres RD FRANCISCO agrees w/ above sport intern note.
--- NOTE | 2020-08-26 17:21 | NUR ---
ANION GAP 20, BLOOD SUGAR 278 , MESSAGE SENT TO DR LEE
--- NOTE | 2020-08-26 17:23 | NUR ---
DR LEE CALLED BACK WITH ORDERS.
[2020-08-26] MEDS ORDERED: normal saline 1000ml 1,000 ML IVB ONE (17:30)
[2020-08-26 18:00] VITALS: BP 144/94
--- NOTE | 2020-08-26 18:30 | NUR ---
Patient in room MED 310. I have received report from Nery NASH and had the opportunity to ask questions and assume patient care.
--- NOTE | 2020-08-26 19:09 | NUR ---
PAGER ID: [phone] MESSAGE: Say Stevenson, 34M, DKA, anion gap 13, off insulin drip, now 20. ok for BMP lab?
[2020-08-26] MEDS: insulin Lispro (HumaLOG) vial - multi-dose SQ SCH ×2 (19:52→21:48)
--- NOTE | 2020-08-26 20:00 | NUR ---
PAGE SENT TO DR JEISON MADRIGALINT PT BG 334 ANION GAP 20 CO2 15.4 @1500, ASKING FOR REPEAT BMP. AWAITING RESPONSE.
[2020-08-26] MEDS ORDERED: insulin glargine (Lantus) pen - multi-dose SQ SCH (21:00)
[2020-08-26] MEDS: MESSAGE TO NURSING PO SCH (21:01)
[2020-08-26 22:00] VITALS: BP 119/85
--- NOTE | 2020-08-26 23:10 | NUR ---
Patient in room MED 310. I have received report from Alicia NASH and had the opportunity to ask questions and assume patient care.
--- NOTE | 2020-08-26 23:12 | NUR ---
Problems reprioritized. Patient report given, questions answered & plan of care reviewed with Aurora NASH. Student Medication Administration: For this medication-pass time frame, all medication were reviewed, dispensed, administered and documented per hospital policy by Sasha Student nurse from [facility]. Student documentation: I have reviewed and agree with all interventions, assessments performed and documented by Sasha NASH.
[2020-08-27] MEDS: normal saline 1000ml 1,000 ML IV SCH ×2 (00:23→08:04)
--- NOTE | 2020-08-27 01:10 | NUR ---
Page Sent PAGER ID: [phone] MESSAGE: JOANNE MALDONADO 34M IN 310 HERE FOR DKA, PT HAS ONLY A MG LAB ORDERED FOR MORNING LABS DO YOU WANT TO ADD CBC AND BMP?- TATE 8892
--- NOTE | 2020-08-27 01:12 | NUR ---
CALL BACK FROM DR MCHUGH RECEIVED ORDERS FOR CBC AND BMP NOW.
--- NOTE | 2020-08-27 01:30 | NUR ---
I assumed pt care from Alicia RN, I have assessed the pt. and reviewed the charting done by Alicia. I agree with the assessments and interventions preformed. I will continue to monitor the pt and address any needs or concerns.
[2020-08-27] MEDS: HYDROcodone/acetaminophen 5mg/325mg tablet PO PRN ×4 (02:05→16:49)
[2020-08-27 02:36] LABS: BASOPHILS % (AUTO) 0.2 % (0-1); EOSINOPHILS % (AUTO) 0.5 % (0-6); HEMATOCRIT 36.1 % (42.0-52.0); HEMOGLOBIN 12.2 g/dl (14.0-17.9); LYMPHOCYTES # (AUTO) 1.8 X10'3 (1.1-4.8); MEAN CORPUSCULAR HEMOGLOBIN 31.9 PG (27.0-31.0); MEAN CORPUSCULAR HGB CONC 33.7 g/dL (33.0-36.5); MEAN CORPUSCULAR VOLUME 94.5 FL (78-98); MEAN PLATELET VOLUME 8.2 FL (7.4-10.4); MONOCYTES # (AUTO) 0.6 X10'3 (0-0.9); NEUTROPHILS # (AUTO) 5.7 X10'3 (1.8-7.7); NEUTROPHILS % (AUTO) 70.3 % (42-75); PLATELET COUNT 174 X10'3 (140-440); RED BLOOD COUNT 3.82 X10'6 (4.70-6.10); RED CELL DISTRIBUTION WIDTH 12.8 % (11.5-14.5); WHITE BLOOD COUNT 8.1 X10'3 (4.5-11.0)
[2020-08-27 02:46] LABS: ANION GAP 16 (8-16); BLOOD UREA NITROGEN 7 MG/DL (7-18); BUN/CREATININE RATIO 7.1 (5.4-32.0); CHLORIDE 102 MMOL/L (99-107); CREATININE 0.98 MG/DL (0.60-1.10); GLUCOSE 169 MG/DL (70-104); POTASSIUM 3.1 MMOL/L (3.5-5.1); SODIUM 137 MMOL/L (135-145); TOTAL CARBON DIOXIDE 18.8 MMOL/L (24-32); eGFR > 90 ML/MIN
[2020-08-27 02:47] LABS: ALBUMIN 3.2 G/DL (3.4-5.0); MAGNESIUM 2.1 MG/DL (1.5-2.4)
[2020-08-27 03:30] VITALS: BP 126/83
--- NOTE | 2020-08-27 06:24 | NUR ---
Problems reprioritized. Patient report given, questions answered & plan of care reviewed with Nery NASH.
[2020-08-27 07:00] VITALS: BP 139/94
[2020-08-27] MEDS: pantoprazole 40mg Tablet.DR PO SCH (07:23)
[2020-08-27] MEDS: morphine 2 MG/ML inj. syringe IV PRN (07:24)
[2020-08-27] MEDS: sertraline 50mg tablet PO SCH (07:27)
[2020-08-27] MEDS: losartan 25mg tablet PO SCH (07:29)
[2020-08-27] MEDS: heparin, porcine 5000 units/ml vial SQ SCH (07:30)
[2020-08-27] MEDS: K and/or MAG REPLACEMENT MC SCH (08:00)
[2020-08-27] MEDS: insulin Lispro (HumaLOG) vial - multi-dose SQ SCH ×2 (09:08→14:07)
[2020-08-27 11:00] VITALS: BP 122/78
[2020-08-27 12:50] LABS: POTASSIUM 3.2 MMOL/L (3.5-5.1)
[2020-08-27 15:00] VITALS: BP 128/88
[2020-08-27] MEDS ORDERED: POTA20TA10 PO (15:49)
[2020-08-27] MEDS ORDERED: OMEP20CA15 PO (15:49)
--- NOTE | 2020-08-27 17:40 | NUR ---
DISCHARGE INSTRUCTIONS GIVEN TO PATIENT, VERBALIZED UNDERSTANDING. PIV TO LEFT AC AND RIGHT HAND DISCONTINUED.CATHETERS INTACT
== END 2020-08-27 18:20 | disposition home or self-care (01) | DRG 438 ==
LOC: ER 05:10 → ED HOLD 08:17 → MED 3N 17:54
PROVIDERS: ADMIT Internal Medicine; ATTEND Internal Medicine
PROC: BW211ZZ Computerized Tomography (CT Scan) of Abdomen and Pelvis using Low Osmolar Contrast (ICD-10-PCS; principal; 2020-08-25)
DX: K85.90 Acute pancreatitis without necrosis or infection, unspecified (principal); E11.10 Type 2 diabetes mellitus with ketoacidosis without coma; K86.0 Alcohol-induced chronic pancreatitis; E78.00 Pure hypercholesterolemia, unspecified; E78.5 Hyperlipidemia, unspecified; E83.52 Hypercalcemia; F32.9 Major depressive disorder, single episode, unspecified; I10 Essential (primary) hypertension; Z90.49 Acquired absence of other specified parts of digestive tract; Z88.0 Allergy status to penicillin
CPT/HCPCS: 36415; 36600; 74177; 76700; 76937; 80048; 80053; 81001; 82803; 82948; 83605; 83690; 83735; 84100; 84132; 85018; 85025; 87040; 87081; 96372; 96374; 97116; 97161; 97530; 99285; G0378; J0780; J1644; J1815; J1885; J2270; J2405; J3480; J7030; Q9967

== ENCOUNTER 2020-08-31 05:40 | Inpatient (IN) | payer BC ==
[~2020-08-31] VITALS: Ht 182.9 cm; Wt 79.0 kg
[~2020-08-31 05:40] MED LIST changes: +OMEP20CA15 PO; +POTA20TA10 PO
[2020-08-31] MEDS ORDERED: normal saline 1000ML IV soln IV ONE (05:55)
--- NOTE | 2020-08-31 07:20 | NUR ---
PT DIFFICULT STICK FOR IV START OR LAB DRAWS. PT WITH 22g IV OF R THUMB BUT UNABLE TO DRAW LABS FROM IV. SEVERAL ATTEMPTS MADE FOR LAB DRAW WITHOUT SUCCESS REPORTED TO DR. SOLORIO. PICC RN BEING PAGED PER MD SOLORIO
[2020-08-31 07:21] LABS: ABG BASE EXCESS -21.2 mmol/L (-2.0-2.0); ABG HCO3 4.1 mmol/L (22.0-26.0); ABG OXYGEN SATURATION 98.1 % (94-97); ABG PCO2 (T) 10.3 mmHg (35.0-48.0); ABG PO2 (T) 128.5 mmHg (75.0-100.0); ALLEN'S TEST POSITIVE; FMetHb 0.2 % (0.0-1.5); FO2Hb 97.9 % (94-97); PATIENT TEMPERATURE 36.4; TOTAL HEMOGLOBIN 12.3 G/dl (14.0-18.0)
--- NOTE | 2020-08-31 07:35 | NUR ---
PICC RN NOT HERE TILL 8AM. MD SOLORIO UPDATED AND TO REPORT TO MD IF PICC RN UNABLE TO COME TO ED SHORTLY AFTER SHIFT STARTS.
[2020-08-31 07:45] LABS: CLARITY,URINE CLEAR (Clear); COLOR,URINE STRAW (Yellow); GLUCOSE, URINE >=1000 mg/dl (Neg); KETONES,URINE >=80 mg/dl (Neg); LEUKOCYTE ESTERASE ,URINE NEGATIVE (Neg); NITRITES, URINE NEGATIVE (Neg); OCCULT BLOOD,URINE SMALL (Neg); PROTEIN,URINE NEGATIVE (Neg); UROBILINOGEN,URINE 0.2 E.U/dL (0.2-1.0)
[2020-08-31 07:53] LABS: UA COLLECTION TYPE CLN CATCH MIDSTREAM
[2020-08-31 07:55] LABS: SQUAMOUS EPITHELIAL CELL,UR FEW /LPF (FEW)
[2020-08-31 07:56] LABS: MUCUS STRANDS FEW /LPF (Neg); RBC,URINE 0-2 /HPF (0-2); WBC,URINE 0-4 /HPF (0-4)
[2020-08-31 08:04] LABS: URINE AMPHETAMINE SCREEN NEGATIVE (Neg); URINE BARBITUATE SCREEN NEGATIVE (Neg); URINE BENZODIAZEPINES SCREEN NEGATIVE (Neg); URINE CANNABINOID SCREEN NEGATIVE (Neg); URINE COCAINE SCREEN NEGATIVE (Neg); URINE METHADONE SCREEN NEGATIVE (Neg); URINE OPIATE SCREEN NEGATIVE (Neg); URINE PHENCYCLIDINE SCREEN NEGATIVE (Neg)
--- NOTE | 2020-08-31 08:35 | NUR ---
PICC CHARITY Su contacted and will be coming here shortly, lab currently at bedside attempting lab draw. MD Montanez updated, no new orders.
[2020-08-31] MEDS ORDERED: insulin regular, human 10 units/0.1 ml syringe IV ONE (08:40)
[2020-08-31 09:44] LABS: EOSINOPHILS % (AUTO) 0.1 % (0-6); HEMOGLOBIN 11.4 g/dl (14.0-17.9); MEAN PLATELET VOLUME 8.1 FL (7.4-10.4); NEUTROPHILS # (AUTO) 6.2 X10'3 (1.8-7.7)
[2020-08-31 09:45] LABS: BASOPHILS % (AUTO) 0.3 % (0-1); HEMATOCRIT 35.7 % (42.0-52.0); LYMPHOCYTES # (AUTO) 1.6 X10'3 (1.1-4.8); LYMPHOCYTES % (AUTO) 19.2 % (21-51); MEAN CORPUSCULAR HEMOGLOBIN 31.6 PG (27.0-31.0); MEAN CORPUSCULAR HGB CONC 31.9 g/dL (33.0-36.5); MEAN CORPUSCULAR VOLUME 99.3 FL (78-98); MONOCYTES # (AUTO) 0.4 X10'3 (0-0.9); MONOCYTES % (AUTO) 4.6 % (2-12); NEUTROPHILS % (AUTO) 75.8 % (42-75); PLATELET COUNT 406 X10'3 (140-440); RED BLOOD COUNT 3.59 X10'6 (4.70-6.10); RED CELL DISTRIBUTION WIDTH 12.7 % (11.5-14.5); WHITE BLOOD COUNT 8.1 X10'3 (4.5-11.0)
[2020-08-31] MEDS ORDERED: ondansetron/PF 4mg/2ml inj IV ONE (09:45)
[2020-08-31] MEDS ORDERED: normal saline 1000ML IV soln IVB ONE (09:55)
[2020-08-31] MEDS ORDERED: Insulin Reg/NS 100units/100mL 100 ML IV SCH ×2 (10:05→11:00)
[2020-08-31 10:11] LABS: ALANINE AMINOTRANSFERASE 42 U/L (12-78); ALBUMIN 3.5 G/DL (3.4-5.0); ALBUMIN/GLOBULIN RATIO 0.7 (1.1-1.5); ALKALINE PHOSPHATASE 133 IU/L (46-116); ANION GAP 28 (8-16); ASPARTATE AMINO TRANSFERASE 23 U/L (10-37); BILIRUBIN,TOTAL 0.9 MG/DL (0.1-1.0); BLOOD UREA NITROGEN 22 MG/DL (7-18); BUN/CREATININE RATIO 17.6 (5.4-32.0); CHLORIDE 103 MMOL/L (99-107); CREATININE 1.25 MG/DL (0.60-1.10); ETHANOL < 0.010 GM/DL (0.0-0.010); LIPASE 227 U/L (73-393); MAGNESIUM 2.4 MG/DL (1.5-2.4); POTASSIUM 4.7 MMOL/L (3.5-5.1); SODIUM 138 MMOL/L (135-145); TOTAL PROTEIN 8.4 G/DL (6.4-8.2); TROPONIN I < 0.04 NG/ML (0.0-0.05); eGFR 80 ML/MIN
[2020-08-31 10:15] LABS: GLUCOSE 468 MG/DL (70-104)
[2020-08-31 10:16] LABS: TOTAL CARBON DIOXIDE 6.6 MMOL/L (24-32)
[2020-08-31] MEDS ORDERED: Neutra Phos packet PO PRN (11:00)
[2020-08-31] MEDS ORDERED: ondansetron/PF 4mg/2ml inj IV PRN (11:00)
[2020-08-31] MEDS ORDERED: acetaminophen 650mg rectal suppository RC PRN (11:00)
[2020-08-31] MEDS ORDERED: potassium Cl 40MEQ/1/2NS 520ml 520 ML IV PRN ×2 (11:00)
[2020-08-31] MEDS ORDERED: insulin regular, human U-100 3ml vial - multi-dose IV PRN (11:00)
[2020-08-31] MEDS ORDERED: magnesium hydroxide 30ml (MOM) UD suspension PO PRN (11:00)
[2020-08-31] MEDS ORDERED: sodium phosphate inj. 15 MMOL in dextrose 5%-water 250 ML IV PRN (11:00)
[2020-08-31] MEDS ORDERED: sodium phosphate inj. 30 MMOL in dextrose 5%-water 250 ML IV PRN (11:00)
[2020-08-31] MEDS ORDERED: sodium bicarbonate (8.4%) inj. 50 MEQ in dextrose 5% water 500ml 250 ML IV PRN (11:00)
[2020-08-31] MEDS ORDERED: sodium bicarbonate (8.4%) inj. 100 MEQ in dextrose 5% water 500ml 500 ML IV PRN (11:00)
[2020-08-31] MEDS ORDERED: mag hydrox/Alum hydrox/simeth 30ml oral suspension PO PRN (11:00)
[2020-08-31] MEDS: normal saline 1000ml 1,000 ML IV SCH ×4 (12:12→23:00)
[2020-08-31 12:26] LABS: ALBUMIN 3.5 G/DL (3.4-5.0); ANION GAP 27 (8-16); BLOOD UREA NITROGEN 19 MG/DL (7-18); BUN/CREATININE RATIO 17.8 (5.4-32.0); CALCIUM 8.6 MG/DL (8.5-10.1); CHLORIDE 105 MMOL/L (99-107); CREATININE 1.07 MG/DL (0.60-1.10); GLUCOSE 340 MG/DL (70-104); PHOSPHORUS 2.5 MG/DL (2.3-4.5); POTASSIUM 5.1 MMOL/L (3.5-5.1); SODIUM 138 MMOL/L (135-145); eGFR > 90 ML/MIN
[2020-08-31] MEDS ORDERED: SERT-433 PO (12:29)
[2020-08-31] MEDS ORDERED: POTA20TA19 PO (12:29)
[2020-08-31] MEDS ORDERED: LOSA25TA41 PO (12:29)
[2020-08-31] MEDS ORDERED: TRAZ-256 PO (12:29)
[2020-08-31] MEDS ORDERED: OMEP-50 PO (12:29)
[2020-08-31] MEDS ORDERED: METF-438 PO (12:29)
[2020-08-31 12:34] LABS: TOTAL CARBON DIOXIDE 5.9 MMOL/L (24-32)
--- NOTE | 2020-08-31 12:50 | NUR ---
Called ED for report, was told they are in middle of respiratory emergency and RN will call back to give report.
[2020-08-31] MEDS: acetaminophen 325mg tablet PO PRN (12:51)
[2020-08-31] MEDS ORDERED: HYDROcodone/acetaminophen 10/325mg tab PO ONE (14:05)
--- NOTE | 2020-08-31 14:08 | NUR ---
Patient in room ED 6. I have received report from Yesika NASH and had the opportunity to ask questions and assume patient care.
--- NOTE | 2020-08-31 14:13 | NUR ---
PHONE REPORT TO ABDOULAYE NASH PATIENT TO GO TO PCU VIA HOLLIE ON MONITOR, INSULIN GTT AT 5 ML/HR AND NS AT 250 ML/HR TO LEFT UPPER ARM PIV
[2020-08-31] MEDS: sodium chloride inj. 77 MEQ in Dextrose 10%-water IV solution 980.75 ML IV SCH ×2 (14:20→20:58)
[2020-08-31] MEDS ORDERED: insulin regular, human 10 units/0.1 ml syringe SQ ONE (14:25)
--- NOTE | 2020-08-31 14:39 | NUR ---
JUDD RN IS DOING BELOGINGS LIST AND WILL ADMINISTER NOROC PRIOR TO GOING UP TO PCU
[2020-08-31 15:00] VITALS: BP 100/63
[2020-08-31 15:48] LABS: ALBUMIN 3.3 G/DL (3.4-5.0); ANION GAP 22 (8-16); BLOOD UREA NITROGEN 16 MG/DL (7-18); BUN/CREATININE RATIO 15.7 (5.4-32.0); CALCIUM 8.2 MG/DL (8.5-10.1); CHLORIDE 106 MMOL/L (99-107); CREATININE 1.02 MG/DL (0.60-1.10); GLUCOSE 178 MG/DL (70-104); SODIUM 138 MMOL/L (135-145); eGFR > 90 ML/MIN
[2020-08-31 15:56] LABS: TOTAL CARBON DIOXIDE 9.8 MMOL/L (24-32)
[2020-08-31] MEDS: dextrose 5%-1/2 normal saline 1,000 ML IV SCH ×2 (16:12→20:52)
[2020-08-31] MEDS: potassium CL 20mEq in D5-1/2NS 1,000 ML IV PRN ×2 (16:54→20:52)
--- NOTE | 2020-08-31 17:08 | NUR ---
Page to Dr. Pathak PAGER ID: [phone] MESSAGE: Derek Deal [phone]. New from ED, DKA. Need to change insulin rate to 2 units/hr due to decreasing blood sugar now at 119. I will change the order to 2 and continue to monitor. Thank you, Kiah AVENDAÑO
[2020-08-31] MEDS: Insulin Reg/NS 100units/100mL 100 ML IV SCH ×2 (17:10→20:57)
[2020-08-31 17:27] LABS: ALBUMIN 3.4 G/DL (3.4-5.0); ANION GAP 20 (8-16); BLOOD UREA NITROGEN 14 MG/DL (7-18); BUN/CREATININE RATIO 13.3 (5.4-32.0); CALCIUM 8.3 MG/DL (8.5-10.1); CHLORIDE 107 MMOL/L (99-107); CREATININE 1.05 MG/DL (0.60-1.10); GLUCOSE 119 MG/DL (70-104); POTASSIUM 3.5 MMOL/L (3.5-5.1); SODIUM 140 MMOL/L (135-145); eGFR > 90 ML/MIN
[2020-08-31 17:29] LABS: TOTAL CARBON DIOXIDE 13.2 MMOL/L (24-32)
[2020-08-31 18:00] VITALS: BP 106/54
--- NOTE | 2020-08-31 18:12 | NUR ---
Problems reprioritized. Patient report given, questions answered & plan of care reviewed with Nilda NASH.
[2020-08-31] MEDS: K and/or MAG REPLACEMENT MC SCH (19:36)
--- NOTE | 2020-08-31 20:00 | NUR ---
Critical result received from LAB: Co2 13.3 and Phos 1.2. Electrolyte protocol utilized and DKA Protocol continued.
[2020-08-31 20:04] LABS: ALBUMIN 3.1 G/DL (3.4-5.0); ANION GAP 19 (8-16); BLOOD UREA NITROGEN 13 MG/DL (7-18); BUN/CREATININE RATIO 13.3 (5.4-32.0); CALCIUM 8.1 MG/DL (8.5-10.1); CHLORIDE 106 MMOL/L (99-107); CREATININE 0.98 MG/DL (0.60-1.10); GLUCOSE 133 MG/DL (70-104); POTASSIUM 3.6 MMOL/L (3.5-5.1); SODIUM 138 MMOL/L (135-145); eGFR > 90 ML/MIN
[2020-08-31 20:09] LABS: PHOSPHORUS 1.2 MG/DL (2.3-4.5); TOTAL CARBON DIOXIDE 13.3 MMOL/L (24-32)
[2020-08-31] MEDS: traZODone 50mg tablet PO SCH (20:58)
[2020-08-31 21:51] LABS: ANION GAP 17 (8-16); BLOOD UREA NITROGEN 13 MG/DL (7-18); BUN/CREATININE RATIO 13.8 (5.4-32.0); CHLORIDE 107 MMOL/L (99-107); CREATININE 0.94 MG/DL (0.60-1.10); GLUCOSE 152 MG/DL (70-104); POTASSIUM 3.6 MMOL/L (3.5-5.1); SODIUM 139 MMOL/L (135-145); TOTAL CARBON DIOXIDE 15.3 MMOL/L (24-32); eGFR > 90 ML/MIN
[2020-08-31 22:00] VITALS: BP 112/72
[2020-08-31 23:22] LABS: ANION GAP 16 (8-16); BLOOD UREA NITROGEN 12 MG/DL (7-18); BUN/CREATININE RATIO 12.9 (5.4-32.0); CALCIUM 7.8 MG/DL (8.5-10.1); CHLORIDE 106 MMOL/L (99-107); CREATININE 0.93 MG/DL (0.60-1.10); GLUCOSE 172 MG/DL (70-104); POTASSIUM 3.5 MMOL/L (3.5-5.1); SODIUM 138 MMOL/L (135-145); TOTAL CARBON DIOXIDE 15.6 MMOL/L (24-32); eGFR > 90 ML/MIN
[2020-09-01] MEDS: potassium CL 20mEq in D5-1/2NS 1,000 ML IV PRN ×4 (00:57→19:17)
[2020-09-01 01:44] LABS: ALBUMIN 2.8 G/DL (3.4-5.0); ANION GAP 14 (8-16); BLOOD UREA NITROGEN 10 MG/DL (7-18); BUN/CREATININE RATIO 11.6 (5.4-32.0); CALCIUM 7.6 MG/DL (8.5-10.1); CHLORIDE 106 MMOL/L (99-107); CREATININE 0.86 MG/DL (0.60-1.10); GLUCOSE 198 MG/DL (70-104); POTASSIUM 3.3 MMOL/L (3.5-5.1); SODIUM 137 MMOL/L (135-145); TOTAL CARBON DIOXIDE 17.1 MMOL/L (24-32); eGFR > 90 ML/MIN
[2020-09-01 02:00] VITALS: BP 108/72
[2020-09-01] MEDS: potassium Cl 20 mEq SR tablet PO PRN ×5 (02:24→23:44)
[2020-09-01] MEDS: normal saline 1000ml 1,000 ML IV SCH ×6 (03:00→23:00)
[2020-09-01] MEDS: dextrose 5%-1/2 normal saline 1,000 ML IV SCH ×4 (03:32→23:40)
[2020-09-01] MEDS: sodium chloride inj. 77 MEQ in Dextrose 10%-water IV solution 980.75 ML IV SCH (03:32)
--- NOTE | 2020-09-01 03:54 | NUR ---
Venous blood sugar 208. This was rejected and capillary refill result 199.
[2020-09-01] MEDS: acetaminophen 325mg tablet PO PRN (04:09)
--- NOTE | 2020-09-01 05:37 | NUR ---
0300 Blood draw not completed due to pt being a hard stick. This RN, another RN, and chargeback analyst attempted blood draw. Lab notified and will collect 0500 draw greer.
[2020-09-01 06:00] VITALS: BP 106/72
--- NOTE | 2020-09-01 06:26 | NUR ---
Patient in room PCU 3014. I have received report from Nilda NASH and had the opportunity to ask questions and assume patient care. Patient in no distress, no pain. IVF running, whiteboard updated.
--- NOTE | 2020-09-01 06:27 | NUR ---
Patient in room PCU 3014. I have received report from CHARITY Munguia and had the opportunity to ask questions and assume patient care.
[2020-09-01 07:30] LABS: ALBUMIN 3.2 G/DL (3.4-5.0); ANION GAP 14 (8-16); BLOOD UREA NITROGEN 9 MG/DL (7-18); BUN/CREATININE RATIO 10.5 (5.4-32.0); CALCIUM 8.5 MG/DL (8.5-10.1); CHLORIDE 103 MMOL/L (99-107); CREATININE 0.86 MG/DL (0.60-1.10); GLUCOSE 205 MG/DL (70-104); POTASSIUM 3.5 MMOL/L (3.5-5.1); SODIUM 134 MMOL/L (135-145); TOTAL CARBON DIOXIDE 17.3 MMOL/L (24-32); eGFR > 90 ML/MIN
[2020-09-01 07:33] LABS: PHOSPHORUS 0.9 MG/DL (2.3-4.5)
--- NOTE | 2020-09-01 07:40 | NUR ---
Graham Wilkerson [id number]. Critical Phos 0.9 down from 1.2 on 08/31/20. Thanks Ignacio [phone]
[2020-09-01] MEDS: losartan 25mg tablet PO SCH (08:00)
[2020-09-01] MEDS: potassium Cl 20 mEq SR tablet PO SCH (08:05)
[2020-09-01] MEDS: sertraline 50mg tablet PO SCH (08:06)
[2020-09-01] MEDS: pantoprazole 40mg Tablet.DR PO SCH (08:06)
[2020-09-01] MEDS: K and/or MAG REPLACEMENT MC SCH ×2 (08:10→19:04)
[2020-09-01] MEDS: Neutra Phos packet PO SCH ×3 (09:06→20:17)
--- NOTE | 2020-09-01 09:25 | NUR ---
Paged PICC nurse Graham Caro [phone] Pt in DKA, has Q2 BMP, hard stick, needs extended for drawing purposes please. No restrictions. Thank you [phone]
--- NOTE | 2020-09-01 10:16 | NUR ---
Paged PICC nurse Re: Graham Deal [id number] Lab unable to draw pt's blood, need extended SOURAV for DKA please, Thank you [phone]
--- NOTE | 2020-09-01 11:10 | NUR ---
Spoke with Sharelne Levin, PICC RN regarding pt needing an extended. I informed her that the pt is in DKA and needs an extended SOURAV, needs blood drawn, lab has been unsuccessful with draws. She stated she will come up and take a look.
[2020-09-01] MEDS: Insulin Reg/NS 100units/100mL 100 ML IV SCH (11:41)
--- NOTE | 2020-09-01 12:36 | NUR ---
Text Sharlene Levin personal cell that she gave me on 09/01/20 at 1045, regarding placing an extended in this pt. 2 RN's and directory operator were unsuccessful with lab draws. Leonard Su my pt needed labs drawn at 10am and is currently in DKA.
[2020-09-01 13:49] LABS: ALBUMIN 2.8 G/DL (3.4-5.0); ANION GAP 12 (8-16); BLOOD UREA NITROGEN 7 MG/DL (7-18); BUN/CREATININE RATIO 9.6 (5.4-32.0); CALCIUM 7.8 MG/DL (8.5-10.1); CHLORIDE 103 MMOL/L (99-107); CREATININE 0.73 MG/DL (0.60-1.10); GLUCOSE 208 MG/DL (70-104); POTASSIUM 3.7 MMOL/L (3.5-5.1); SODIUM 134 MMOL/L (135-145); TOTAL CARBON DIOXIDE 19.1 MMOL/L (24-32); eGFR > 90 ML/MIN
--- NOTE | 2020-09-01 14:10 | NUR ---
Pulled blood out of L upper extended, BS read 23, flushed line with 10ml NS, wasted 5ml of blood and used a new drop of blood, with a glucose reading of 203.
--- NOTE | 2020-09-01 14:14 | NUR ---
DM consult: Pt admit with nonketotic hyperglycemia with blood sugar greater than 600 mg/dL on admit. Patient's A1c 8.1% last taken 07/04/20. Attempted visit with pt at bedside for DM education however pt unavailable. Will try again at another time. Pt last provided with written and verbal pancreatitis and DM educations 07/05. Per ED note this admit pt reports compliance with Metformin rx and pt recently admitted for DKA and discharged five days [employer]. Patient had several beers yesterday which markedly increased his blood sugars per H&P. Noted that MCV slightly elevated at 99.3. Recommend routine Thiamine, Folic acid, and MVI. Pt currently NPO. LBM 09/01. No edema or wounds. Will continue to follow closely. Recommendations: 1) Advance to CHO controlled diet as medically indicated 2) Bowel care per rx 3) Routine Thiamine, Folic acid, and MVI with MD approval with MCV 99.3 4) Scaled weight this admit; routine scaled weights thereafter 5) DM education given recurrent elevated BG levels, A1c 8.1% Addendum: 09/01/20 at [address] Amended: Links added.
[2020-09-01 15:00] VITALS: BP 121/78
[2020-09-01 18:00] VITALS: BP 124/87
--- NOTE | 2020-09-01 18:15 | NUR ---
[place] documentation: I have reviewed and agree with all interventions, assessments performed and documented by CHARITY Pierre.
--- NOTE | 2020-09-01 18:15 | NUR ---
[place] Medication Administration: For this medication-pass time frame, all medication were reviewed, dispensed, administered and documented per hospital policy by CHARITY Pierre.
--- NOTE | 2020-09-01 18:16 | NUR ---
Problems reprioritized. Patient report given, questions answered & plan of care reviewed with Nilda NASH.
--- NOTE | 2020-09-01 18:17 | NUR ---
Problems reprioritized. Patient report given, questions answered & plan of care reviewed with CHARITY Munguia. Pt sleeping in bed comfortably at change of shift. No signs of distress. All pt needs met at change of shift.
[2020-09-01 18:55] LABS: ALBUMIN 2.5 G/DL (3.4-5.0); ANION GAP 13 (8-16); BLOOD UREA NITROGEN 4 MG/DL (7-18); BUN/CREATININE RATIO 6.8 (5.4-32.0); CALCIUM 7.5 MG/DL (8.5-10.1); CHLORIDE 104 MMOL/L (99-107); CREATININE 0.59 MG/DL (0.60-1.10); GLUCOSE 210 MG/DL (70-104); SODIUM 135 MMOL/L (135-145); TOTAL CARBON DIOXIDE 18.5 MMOL/L (24-32); eGFR > 90 ML/MIN
[2020-09-01] MEDS: traZODone 50mg tablet PO SCH (20:17)
[2020-09-01 22:00] VITALS: BP 125/87
[2020-09-01 22:42] LABS: ALBUMIN 2.6 G/DL (3.4-5.0); ANION GAP 9 (8-16); BLOOD UREA NITROGEN 4 MG/DL (7-18); CALCIUM 7.8 MG/DL (8.5-10.1); CHLORIDE 104 MMOL/L (99-107); GLUCOSE 209 MG/DL (70-104); POTASSIUM 3.3 MMOL/L (3.5-5.1); SODIUM 134 MMOL/L (135-145); TOTAL CARBON DIOXIDE 20.6 MMOL/L (24-32); eGFR > 90 ML/MIN
[2020-09-02 02:00] VITALS: BP 123/89
[2020-09-02] MEDS: potassium CL 20mEq in D5-1/2NS 1,000 ML IV PRN ×2 (02:34→10:36)
[2020-09-02 02:45] LABS: ALBUMIN 2.4 G/DL (3.4-5.0); ANION GAP 12 (8-16); BLOOD UREA NITROGEN 4 MG/DL (7-18); BUN/CREATININE RATIO 7.4 (5.4-32.0); CALCIUM 7.5 MG/DL (8.5-10.1); CHLORIDE 104 MMOL/L (99-107); CREATININE 0.54 MG/DL (0.60-1.10); GLUCOSE 203 MG/DL (70-104); POTASSIUM 3.3 MMOL/L (3.5-5.1); SODIUM 134 MMOL/L (135-145); TOTAL CARBON DIOXIDE 18.4 MMOL/L (24-32); eGFR > 90 ML/MIN
[2020-09-02] MEDS: normal saline 1000ml 1,000 ML IV SCH ×5 (03:00→20:57)
[2020-09-02 04:52] LABS: PHOSPHORUS 1.1 MG/DL (2.3-4.5)
[2020-09-02] MEDS: potassium Cl 20 mEq SR tablet PO PRN ×4 (05:22→16:05)
[2020-09-02] MEDS: Neutra Phos packet PO SCH ×3 (05:22→20:41)
[2020-09-02] MEDS: dextrose 5%-1/2 normal saline 1,000 ML IV SCH ×2 (05:58→13:00)
[2020-09-02 06:07] LABS: BASOPHILS % (AUTO) 0.8 % (0-1); EOSINOPHILS # (AUTO) 0.1 X10'3 (0-0.9); EOSINOPHILS % (AUTO) 1.4 % (0-6); HEMATOCRIT 27.4 % (42.0-52.0); HEMOGLOBIN 9.4 g/dl (14.0-17.9); LYMPHOCYTES # (AUTO) 2.7 X10'3 (1.1-4.8); MEAN CORPUSCULAR HEMOGLOBIN 32.2 PG (27.0-31.0); MEAN CORPUSCULAR HGB CONC 34.3 g/dL (33.0-36.5); MEAN CORPUSCULAR VOLUME 93.9 FL (78-98); MEAN PLATELET VOLUME 7.4 FL (7.4-10.4); MONOCYTES # (AUTO) 0.7 X10'3 (0-0.9); MONOCYTES % (AUTO) 13.3 % (2-12); NEUTROPHILS # (AUTO) 1.8 X10'3 (1.8-7.7); NEUTROPHILS % (AUTO) 33.5 % (42-75); PLATELET COUNT 293 X10'3 (140-440); RED BLOOD COUNT 2.92 X10'6 (4.70-6.10); RED CELL DISTRIBUTION WIDTH 12.2 % (11.5-14.5); WHITE BLOOD COUNT 5.4 X10'3 (4.5-11.0)
[2020-09-02 06:13] LABS: ALBUMIN 2.6 G/DL (3.4-5.0); ANION GAP 10 (8-16); BLOOD UREA NITROGEN 3 MG/DL (7-18); BUN/CREATININE RATIO 4.9 (5.4-32.0); CALCIUM 7.6 MG/DL (8.5-10.1); CHLORIDE 103 MMOL/L (99-107); CREATININE 0.61 MG/DL (0.60-1.10); GLUCOSE 179 MG/DL (70-104); POTASSIUM 3.3 MMOL/L (3.5-5.1); SODIUM 133 MMOL/L (135-145); eGFR > 90 ML/MIN
--- NOTE | 2020-09-02 06:15 | NUR ---
Patient in room PCU 3014. I have received report from Nilda NASH and had the opportunity to ask questions and assume patient care.
--- NOTE | 2020-09-02 06:20 | NUR ---
Critical phos 1.1. replaced per MAR.
--- NOTE | 2020-09-02 06:21 | NUR ---
Patient in room PCU 3014. I have received report from Nilda NASH and had the opportunity to ask questions and assume patient care.Pt sleeping, chest rise and fall noted
[2020-09-02 07:00] VITALS: BP 108/80
[2020-09-02] MEDS: potassium Cl 20 mEq SR tablet PO SCH (07:43)
[2020-09-02] MEDS: sertraline 50mg tablet PO SCH (07:45)
[2020-09-02] MEDS: losartan 25mg tablet PO SCH (07:45)
[2020-09-02] MEDS: pantoprazole 40mg Tablet.DR PO SCH (07:45)
[2020-09-02] MEDS: K and/or MAG REPLACEMENT MC SCH ×2 (07:47→20:00)
[2020-09-02] MEDS ORDERED: dextrose 50%-water 50ml dispensing syringe IV PRN ×2 (10:05)
[2020-09-02] MEDS ORDERED: dextrose ORAL solution 15 GM/59 ML bottle PO PRN ×2 (10:05)
[2020-09-02] MEDS ORDERED: MESSAGE TO PHARMACY PO ONE (10:05)
[2020-09-02] MEDS ORDERED: glucagon, human recombinant 1mg kit SUBCUT PRN (10:05)
--- NOTE | 2020-09-02 10:10 | NUR ---
At aprox 1010 spoke to MD Gustavo oliva pt insulin gtt and labs. She plans to start diet at noon , cover with appropriate nutritional dose insulin and dc insulin gtt. She indicated possible dc home tomorrow
[2020-09-02 10:31] LABS: ALBUMIN 2.7 G/DL (3.4-5.0); ANION GAP 9 (8-16); BLOOD UREA NITROGEN 2 MG/DL (7-18); BUN/CREATININE RATIO 3.5 (5.4-32.0); CALCIUM 7.7 MG/DL (8.5-10.1); CHLORIDE 103 MMOL/L (99-107); CREATININE 0.57 MG/DL (0.60-1.10); GLUCOSE 165 MG/DL (70-104); MAGNESIUM 1.6 MG/DL (1.5-2.4); POTASSIUM 3.6 MMOL/L (3.5-5.1); SODIUM 134 MMOL/L (135-145); TOTAL CARBON DIOXIDE 21.6 MMOL/L (24-32); eGFR > 90 ML/MIN
[2020-09-02 10:34] LABS: PHOSPHORUS 1.1 MG/DL (2.3-4.5)
[2020-09-02 11:00] VITALS: BP 125/81
--- NOTE | 2020-09-02 11:22 | NUR ---
ABG ATTEMPTED FOR THE 3RD TIME BY TWO RT'S AND STILL UNABLE TO OBTAIN. PT VERY FIRM THAT HE DOESNT WANT TO BE POKED AGAIN. SPOKE WITH ISAAC COLÓN RN AND MADE HIM AWARE THAT IF THE MD WANTS ABG SHE'LL HAVE TO SPEAK WITH THE PT. PT ON RA WITH A SPO2 OF 98% AND POSSIBLY BEING DC'D TOMORROW PER RN
[2020-09-02] MEDS: insulin Lispro (HumaLOG) vial - multi-dose SQ SCH ×3 (13:08→20:44)
--- NOTE | 2020-09-02 13:12 | NUR ---
Pt ate 44g carbs, no N, admin 3 units insulin per scale. will dc insulin gtt 1400
--- NOTE | 2020-09-02 14:25 | NUR ---
Insulin gtt dc'd. also changed fluids out from D5-1/2NS to NS at 125ml/hr. pt awake and appropriate. Up to toilet i and steady. BG 236 Addendum: 09/02/20 at 1430 by Marco A Mtichell RN Hyperglycemia protocol activated
[2020-09-02 15:00] VITALS: BP 116/71
[2020-09-02 15:09] LABS: ALBUMIN 2.7 G/DL (3.4-5.0); ANION GAP 11 (8-16); BLOOD UREA NITROGEN 2 MG/DL (7-18); BUN/CREATININE RATIO 3.3 (5.4-32.0); CALCIUM 7.5 MG/DL (8.5-10.1); CHLORIDE 101 MMOL/L (99-107); GLUCOSE 219 MG/DL (70-104); POTASSIUM 3.7 MMOL/L (3.5-5.1); SODIUM 133 MMOL/L (135-145); TOTAL CARBON DIOXIDE 21.5 MMOL/L (24-32); eGFR > 90 ML/MIN
--- NOTE | 2020-09-02 15:57 | NUR ---
F/u for DM consult: Pt seen at bedside provided with written DM education with thorough review. Pt states he usually has a physician that he sees q 3 months, takes his medications per rx, and checks BG levels fasting in the morning and the evening. Pt states he used to follow a CHO controlled diet however no longer does for no specific reason. RD discussed foods that contain carbs, consistent carb intake, reading the nutrition facts label, the role of exercise, and more. Pt verbalizes understanding and reports desire to better manage his diabetes. Pt reports his A1c was 6.4% last summer when he was exercising more and following a more strict diet. Pt believes the increase in A1c is r/t increased stress as pt is planning to move across the country. RD assisted pt in planning snacks for his trip and encouraged pt to check his blood sugars more frequently while driving. All of patient's questions were answered at this time. RD contact information provided and pt encouraged to reach out for further questions. Pt endorses a good appetite and denies food allergies, difficulty chewing/swallowing, or constipation/diarrhea. Will continue to follow. Addendum: 09/02/20 at [address] Amended: Links added.
[2020-09-02 18:00] VITALS: BP 119/67
--- NOTE | 2020-09-02 18:00 | NUR ---
[place] documentation: I have reviewed and agree with all interventions, assessments performed and documented by Marco A Mitchell RN.
--- NOTE | 2020-09-02 18:12 | NUR ---
Problems reprioritized. Patient report given, questions answered & plan of care reviewed with Nilda NASH.
--- NOTE | 2020-09-02 18:12 | NUR ---
Problems reprioritized. Patient report given, questions answered & plan of care reviewed with Nilda NASH. Mike Andino for lab, pt a/ox3 finishing meal.
[2020-09-02 18:34] LABS: ALBUMIN 2.8 G/DL (3.4-5.0); ANION GAP 11 (8-16); BLOOD UREA NITROGEN 2 MG/DL (7-18); BUN/CREATININE RATIO 3.7 (5.4-32.0); CALCIUM 8.1 MG/DL (8.5-10.1); CHLORIDE 98 MMOL/L (99-107); CREATININE 0.54 MG/DL (0.60-1.10); GLUCOSE 221 MG/DL (70-104); POTASSIUM 3.8 MMOL/L (3.5-5.1); SODIUM 132 MMOL/L (135-145); TOTAL CARBON DIOXIDE 22.6 MMOL/L (24-32); eGFR > 90 ML/MIN
[2020-09-02 19:20] LABS: PHOSPHORUS 2.2 MG/DL (2.3-4.5)
[2020-09-02] MEDS: traZODone 50mg tablet PO SCH (20:40)
[2020-09-02] MEDS ORDERED: insulin glargine (Lantus) pen - multi-dose SQ SCH (21:00)
[2020-09-02 22:00] VITALS: BP 125/80
[2020-09-03 02:00] VITALS: BP 123/85
[2020-09-03] MEDS: normal saline 1000ml 1,000 ML IV SCH (04:35)
--- NOTE | 2020-09-03 06:15 | NUR ---
Patient in room PCU 3014. I have received report from Nilda NASH and had the opportunity to ask questions and assume patient care.
[2020-09-03 07:00] VITALS: BP 118/83
[2020-09-03] MEDS: pantoprazole 40mg Tablet.DR PO SCH (07:39)
[2020-09-03] MEDS: potassium Cl 20 mEq SR tablet PO SCH (07:40)
[2020-09-03] MEDS: Neutra Phos packet PO SCH (07:41)
[2020-09-03] MEDS: sertraline 50mg tablet PO SCH (07:41)
[2020-09-03] MEDS: losartan 25mg tablet PO SCH (07:41)
[2020-09-03] MEDS: K and/or MAG REPLACEMENT MC SCH (08:00)
[2020-09-03] MEDS: insulin Lispro (HumaLOG) vial - multi-dose SQ SCH (09:30)
[2020-09-03] MEDS ORDERED: GLIM1TAB6 PO (09:31)
[2020-09-03 10:29] LABS: BASOPHILS % (AUTO) 0.8 % (0-1); EOSINOPHILS % (AUTO) 0.8 % (0-6); HEMATOCRIT 24.9 % (42.0-52.0); HEMOGLOBIN 8.6 g/dl (14.0-17.9); LYMPHOCYTES # (AUTO) 2.3 X10'3 (1.1-4.8); LYMPHOCYTES % (AUTO) 41.6 % (21-51); MEAN CORPUSCULAR HEMOGLOBIN 32.5 PG (27.0-31.0); MEAN CORPUSCULAR HGB CONC 34.8 g/dL (33.0-36.5); MEAN CORPUSCULAR VOLUME 93.4 FL (78-98); MEAN PLATELET VOLUME 8.8 FL (7.4-10.4); MONOCYTES # (AUTO) 0.8 X10'3 (0-0.9); MONOCYTES % (AUTO) 14.2 % (2-12); NEUTROPHILS # (AUTO) 2.3 X10'3 (1.8-7.7); NEUTROPHILS % (AUTO) 42.6 % (42-75); PLATELET COUNT 264 X10'3 (140-440); RED BLOOD COUNT 2.66 X10'6 (4.70-6.10); RED CELL DISTRIBUTION WIDTH 12.5 % (11.5-14.5); WHITE BLOOD COUNT 5.4 X10'3 (4.5-11.0)
[2020-09-03 10:40] LABS: ALBUMIN 2.6 G/DL (3.4-5.0); ANION GAP 12 (8-16); BLOOD UREA NITROGEN 3 MG/DL (7-18); BUN/CREATININE RATIO 5.6 (5.4-32.0); CALCIUM 7.8 MG/DL (8.5-10.1); CHLORIDE 100 MMOL/L (99-107); CREATININE 0.54 MG/DL (0.60-1.10); GLUCOSE 339 MG/DL (70-104); PHOSPHORUS 2.4 MG/DL (2.3-4.5); POTASSIUM 3.4 MMOL/L (3.5-5.1); SODIUM 134 MMOL/L (135-145); TOTAL CARBON DIOXIDE 22.2 MMOL/L (24-32); eGFR > 90 ML/MIN
[2020-09-03 11:00] VITALS: BP 118/74
--- NOTE | 2020-09-03 11:00 | NUR ---
[facility] [place] called . Read prescription to pharmacist
[2020-09-03] MEDS ORDERED: potassium Cl 20 mEq SR tablet PO PRN (11:10)
--- NOTE | 2020-09-03 11:34 | NUR ---
Pt A/ox3 and stable for disch per MD Cabrera. KCL replaced. pt iv's removed and cath tips intact x3. sites benign. a/ox3 , tele box removed and return to tele. Disch papers printed signed and reviewed by pt. New scripts called to [facility]. Answered all questions. Dressed self i. down in w/c to friends vehicle at 1143. all belongings accounted for.
== END 2020-09-03 11:53 | disposition home or self-care (01) | DRG 637 ==
LOC: ER 05:42 → ED HOLD 10:59 → PCU 3S 14:56
PROVIDERS: ADMIT Family Medicine; ATTEND Family Medicine
DX: E11.10 Type 2 diabetes mellitus with ketoacidosis without coma (principal); K85.20 Alcohol induced acute pancreatitis without necrosis or infection; E11.649 Type 2 diabetes mellitus with hypoglycemia without coma; E78.00 Pure hypercholesterolemia, unspecified; E78.5 Hyperlipidemia, unspecified; F32.9 Major depressive disorder, single episode, unspecified; I10 Essential (primary) hypertension; Z90.49 Acquired absence of other specified parts of digestive tract; Z88.0 Allergy status to penicillin
CPT/HCPCS: 36415; 36600; 71045; 80048; 80053; 80305; 80320; 81001; 82803; 82948; 83605; 83690; 83735; 83880; 84100; 84145; 84443; 84484; 85018; 85025; 87040; 87081; 93005; 96374; 96375; 99291; G0378; J1815; J2405; J3480; J7030; J7060